=== PATIENT | male | born 1945 | race Caucasian/White ===

== ENCOUNTER 2017-06-17 09:29 | Outpatient (CLI) | payer MEDICARE ==
[~2017-06-17] VITALS: Ht 175.3 cm; Wt 97.1 kg
[2017-06-17] MEDS ORDERED: MISO200T4 PO (09:43)
[2017-06-17] MEDS ORDERED: METO-370 PO (09:43)
[2017-06-17] MEDS ORDERED: FAMO20TA3 PO (09:43)
[2017-06-17] MEDS ORDERED: ASPI-999 PO (09:43)
[2017-06-17] MEDS ORDERED: ATOR40TA70 PO (09:43)
[2017-06-17] MEDS ORDERED: ACET325T38 PO (09:43)
[2017-06-17] MEDS ORDERED: AMLO5TAB2 PO (09:43)
[2017-06-17 09:47] VITALS: BP 150/87
== END 2017-06-17 10:01 | disposition home or self-care (01) ==
LOC: PREOP 09:29
PROVIDERS: ATTEND Podiatrist
DX: Z01.818 Encounter for other preprocedural examination (principal); M86.172 Other acute osteomyelitis, left ankle and foot
CPT/HCPCS: 87081

== ENCOUNTER 2017-06-23 06:00 | Day surgery (SDC) | payer MEDICARE ==
[~2017-06-23] VITALS: Ht 175.3 cm; Wt 97.1 kg
[~2017-06-23 06:00] MED LIST: ACET325T38 PO; AMLO5TAB2 PO; ASPI-999 PO; ATOR40TA70 PO; FAMO20TA3 PO; METO-370 PO; MISO200T4 PO
--- OUTSIDE RECORDS SUMMARY | 2017-06-23 06:15 | XMS REPORT | Continuity of Care Document ---
Author Author [facility] Organization [facility] Address Unknown Phone Unavailable Allergies Active Description Code Type Severity Reaction Onset Reported/Identified Relationship to Patient Clinical Status Yes No Known Drug Allergies [id number] N/A N/A Yes No Known Drug Allergies [id number] Drug Allergy Unknown N/A 06/17/2017 Medications There is no data. Problems Date Dx Coded Attending Type Code Diagnosis Diagnosed By 06/17/2017 BENSON LÓPEZ DPM Ot M86.172 OTHER ACUTE OSTEOMYELITIS, LEFT ANKLE AN 06/17/2017 ALISSAHO BENSON BHARDWAJ Ot Z01.818 ENCOUNTER FOR OTHER PREPROCEDURAL EXAMIN 06/18/2017 ALISSAHO BENSON BHARDWAJ Ot M86.172 OTHER ACUTE OSTEOMYELITIS, LEFT ANKLE AN 06/18/2017 BLANCHO LASHAE, BENSON Mueller Ot Z01.818 ENCOUNTER FOR OTHER PREPROCEDURAL EXAMIN 06/18/2017 BLANCHO LASHAE, BENSON Mueller Ot M86.172 OTHER ACUTE OSTEOMYELITIS, LEFT ANKLE AN 06/18/2017 BLANCHO LASHAE, BENSON Mueller Ot Z01.818 ENCOUNTER FOR OTHER PREPROCEDURAL EXAMIN Procedures There is no data. Results Test Result Range Methicillin resistant Staphylococcus aureus (MRSA) screening culture - 09:45 Methicillin resistant Staphylococcus aureus (MRSA) screening culture NEG NRG Encounters ACCT No. Visit Date/Time Discharge Status Pt. Type Provider Facility Loc./Unit Complaint [id number] 11/28/2014 16:50:00 11/28/2014 23:59:59 CLS Outpatient Nelson Sawant [id number] 06/17/2017 09:29:00 06/17/2017 10:01:00 DIS Outpatient BENSON LÓPEZ DPM Via [facility] PREOP OSTEOMYELITIS [id number] 06/23/2017 06:00:00 ACT Outpatient BENSON LÓPEZ DPM Via [facility] SDC OSTEOMYELITIS [id number] 06/17/2017 08:04:47 Document Registration [id number] 06/10/2017 08:29:04 Document Registration [id number] 05/31/2017 09:04:40 Document Registration [id number] 05/25/2017 11:51:30 Document Registration [id number] 05/25/2017 10:19:55 Document Registration [id number] 05/24/2017 09:35:17 Document Registration [id number] 05/17/2017 10:01:15 Document Registration [id number] 05/03/2017 09:58:47 Document Registration [id number] 04/27/2017 11:31:08 Document Registration [id number] 04/26/2017 09:08:02 Document Registration [id number] 04/19/2017 09:38:32 Document Registration [id number] 04/12/2017 09:16:52 Document Registration [id number] 04/05/2017 10:22:10 Document Registration [id number] 03/29/2017 09:06:57 Document Registration [id number] 03/22/2017 09:44:15 Document Registration [id number] 03/15/2017 08:42:59 Document Registration [id number] 03/08/2017 09:36:30 Document Registration [id number] 03/03/2017 11:11:35 Document Registration [id number] 02/24/2017 09:14:50 Document Registration [id number] 02/15/2017 09:10:52 Document Registration [id number] 02/08/2017 08:30:33 Document Registration [id number] 01/28/2017 13:25:12 Document Registration
[2017-06-23 06:30] VITALS: BP 148/85
[2017-06-23] MEDS ORDERED: ONDANSETRON 4 MG/2 ML (SDV) Z0FRAN ONE ×2 (06:45→09:20)
[2017-06-23] MEDS ORDERED: LIDOCAINE PF 2% 5 ML (XYLOCAINE) VIAL ONE ×2 (06:45→09:20)
[2017-06-23] MEDS ORDERED: proPOfol 200 MG/20 ML (DIPRIVAN) VIAL IV ONE ×2 (06:45→09:20)
[2017-06-23] MEDS ORDERED: fentaNYL INJECTION 100 MCG/2 ML AMP ONE ×2 (06:46→09:20)
[2017-06-23] MEDS ORDERED: MIDAZOLAM 2 MG/2 ML (VERSED) VIAL ONE ×2 (06:46→09:20)
--- NOTE | 2017-06-23 09:06 | Consultation-Cardiology ---
HPI-Cardiology Cardiology Consultation Date of Consultation 06/23/17 Date of Admission Time Seen by Provider: 08:15 Indication: afib HPI Patient is a 71 y/o male with history of HTN, HLP, DM, obesity, osteomyelitis of left foot. Is scheduled for surgery later today with Dr. Gant. Preop EKG revealed atrial fibrillation, rate controlled. Denies any CP, dyspnea, dizziness , lightheadedness, or syncope. No other complaints at this time. Reports has seen Dr. Valle once in the remote past. Denies history of CAD or stent placement. This is Dr. Pennington, I have seen and evaluated Mr. Hodge, he is a 71 years old gentleman with history of hypertension, hyperlipidemia, obesity, has been having osteomyelitis for the past few weeks, scheduled for debridement surgery with Dr. Gonzalez, preoperatively he was noted to be in atrial fibrillation with controlled rate. He denied any chest pain, shortness of breath, palpitation, syncope or near syncopal episode. Admit to snoring at night, reported that he was seen by Dr. Valle in the remote past and he was cleared in the remote past did not require any follow-up. Not aware that he is diabetic but his blood sugar was noted to be elevated Home Medications & Allergies Allergies: Coded Allergies: No Known Drug Allergies (Unverified , 06/17/17) Home Medication List Reviewed: Yes WQL-Wjayfq-Rdfnno Hx Patient Social History Marital Status: Alcohol Use: Past History Recreational Drug Use: No Smoking Status: Former Smoker (quit over 40 years ago) Recent Hopitalizations: No Past Medical History HTN, HLP Family Medical History Significant Family History: No Pertinent Family Hx Constitutional: No dizziness, No fever, No malaise, No weakness EENTM: No blurred vision, No double vision Respiratory: No cough; dyspnea on exertion; No orthopnea Cardiovascular: No chest pain, No edema, No palpitations, No vascular heart diseas Gastrointestinal: No abdominal pain, No constipation, No diarrhea Genitourinary: No dysuria, No frequency Musculoskeletal: No back pain, No neck pain Skin: No lesions, No rash Psychiatric/Neurological: Denies Anxiety, Denies Depressed ECG Impression ECG Initial ECG Rhythm: A Fib/Flutter Initial ECG Impression: Atrial Fibrillation Physical Exam Vital Signs Capillary Refill : General Appearance: No Apparent Distress, WD/WN HEENT: PERRL/EOMI, Normal ENT Inspection Neck: Non Tender, Supple Respiratory: Chest Non Tender, Lungs Clear Cardiovascular: No Edema, No Gallop, No JVD, No Murmur, Irregularly Irregular Gastrointestinal: Non Tender, Soft Rectal: Deferred Back: No CVA Tenderness Extremity: Non Tender, No Calf Tenderness, No Pedal Edema Neurologic/Psychiatric: Alert, Oriented x3, card hand II-XII Norm as Tested Skin: Normal Color, Warm/Dry Lymphatic: No Adenopathy A/P-Cardiology Admission Diagnosis atrial fibrillation left foot osteomyelitis HTN HLP Assessment/Plan Atrial fibrillation, unknown duration. EKG reveals afib, rate controlled. Has been maintained on beta jackeline as outpatient for HTN. I will further evaluate with 2D Echo, TSH. Has multiple risk factors for underlying CAD and VIOLET. Recommend stress test and sleep study as an outpatient. [id number] score of 3, yearly risk of stroke without OAC is 3.2%. Planning to start Eliquis 5mg BID postoperatively. Left foot osteomyelitis, planning for surgery later today with Dr. Gant HTN- continue to monitor BP/HR. Resume BP medications post operatively HLP- maintained on statin as outpatient, continue to monitor. Hyperglycemia, questionable DM by history- continue to monitor. Obesity- discussed diet and exercise for weight loss. Multiple risk factors for underlying VIOLET- recommend sleep study as outpatient. Preoperative cardiac evaluation, patient is considered at intermediate risk for perioperative cardiac vascular complication, decision regarding the surgery, risks versus benefit is deferred to the surgeon, perioperative beta blockers are recommended. Thank you for allowing us to participate in the management of Mr. Hodge. This is Rashmi Menchaca PA-C as a scribe for Dr. Pennington. This is Dr. Pennington, I have seen and evaluated Mr. Hodge with Rashmi, interviewed the patient and examined him and discussed the management plan with Rashmi, agree with the current scribe, on examination lungs are clear to auscultation bilaterally, heart is irregular with normal S1 and S2. Had swelling on his leg. He was noted to be in atrial flutter ablation with controlled rate, taking beta blockers as an outpatient. He is at an increased risk of stroke which require oral anticoagulation postoperatively once deemed reasonable by the surgeon. I will evaluate echocardiogram, he is at increased risk of sleep apnea and requires sleep study, he is hyperglycemic, probably diabetic require diabetic management. I made few modification to the note and used Italic Font RASHMI MENDOZA Jun 23, 2017 09:06 ASHLIE PENNINGTON MD Jun 23, 2017 09:22
[2017-06-23] MEDS ORDERED: ceFAZolin 2 GM IV Premixed 50 ML ONE (09:09)
[2017-06-23] MEDS ORDERED: SEVOFLURANE (ULTANE) 15 ML INHAL SOLN ONE ×5 (09:24→10:49)
[2017-06-23] MEDS ORDERED: LACTATED RINGERS 1,000 ML IV PRN (09:39)
[2017-06-23] MEDS ORDERED: ceFAZolin 2 GM IV Premixed 50 ML IV ONE (09:45)
[2017-06-23] MEDS ORDERED: morphine INJ 10 MG/ML 1ML (SYR OR VIAL) IVP PRN (09:45)
[2017-06-23] MEDS ORDERED: VANCOMYCIN 1000 MG/VIAL ONE (10:13)
[2017-06-23] MEDS ORDERED: GENTAMICIN 40 MG/ML 2 ML INJ SDV ONE (10:13)
--- NOTE | 2017-06-23 11:06 | Progress Note-Pre Operative ---
Pre-Operative Progress Note H&P Reviewed The H&P was reviewed, patient examined and no changes noted. Date Seen by Provider: Jun 23, 2017 Time Seen by Provider: 10:00 Date H&P Reviewed: Jun 23, 2017 Time H&P Reviewed: 10:00 Pre-Operative Diagnosis: Osteomyelitis Left 5th Metatarsal BENSON LÓPEZ DPM Jun 23, 2017 11:06
[2017-06-23] MEDS ORDERED: ACHD5005 PO (11:09)
--- NOTE | 2017-06-23 11:10 | Discharge Inst-Surgical ---
Discharge Inst-Surgical Consults/Follow Up Patient Instructions: Keep Dressing Clean Dry and Intact to the Left foot. Be minimal Weight Bearing to the left foot with Surgical shoe. Follow up with Dr López in 3 weeks. Call for appointment. [phone] BENSON LÓPEZ DPM Jun 23, 2017 11:10
--- NOTE | 2017-06-23 11:28 | Discharge Inst-Surgical ---
Discharge Inst-Surgical Consults/Follow Up Patient Instructions: Keep Dressing Clean Dry and Intact for 3 days. Then At that time begin changing dressing daily by applying a dry sterile dressing and an acewrap. Wear Surgical shoe at all times of weight bearing. Follow up with Dr López next 07/01/17. Call for appointment. [phone] BENSON LÓPEZ DPM Jun 23, 2017 11:28
[2017-06-23 11:50] VITALS: BP 135/88
[2017-06-23 12:20] VITALS: BP 140/85
--- NOTE | 2017-06-23 12:46 | Anesthesia-General Post-Op ---
General Patient Condition Mental Status/LOC: Same as Preop Cardiovascular: Satisfactory Nausea/Vomiting: Absent Respiratory: Satisfactory Pain: Controlled Complications: Absent Post Op Complications Complications None Follow Up Care/Instructions Patient Instructions None needed. Anesthesia/Patient Condition Patient Condition Patient is doing well, no complaints, stable vital signs, no apparent adverse anesthesia problems. No complications reported per nursing. BLANCO ALLEN CRNA Jun 23, 2017 12:46
[2017-06-23 12:50] VITALS: BP 128/77
[2017-06-23 13:30] VITALS: BP 128/77
--- NOTE | 2017-07-14 17:15 | OPERATIVE REPORT ---
DATE OF SERVICE: 06/23/2017 SURGEON: Jose López DPM. GLOVE BOARDER: None. PREOPERATIVE DIAGNOSIS: Osteomyelitis of the left fifth metatarsal. POSTOPERATIVE DIAGNOSIS: Osteomyelitis of the left fifth metatarsal. PROCEDURE PERFORMED: 1. Resection of the distal 1/2 of the left fifth metatarsal. 2. Placement of antibiotic bone void spacer. ANESTHESIA: General anesthesia. HEMOSTASIS: Locally controlled. ESTIMATED BLOOD LOSS: 25 mL. MATERIALS USED: Antibiotic bone void spacer, 2-0, 3-0 nylon. INTRAOPERATIVE INJECTABLES: None. COMPLICATIONS: None. INDICATION FOR THE PROCEDURE: The patient is a 71-year-old male with a history of complicated ulcer to his left foot with a history of osteomyelitis of the fifth metatarsal. At this time, he is also on conservative measures requiring surgical intervention. He signed consent prior to being taken back to the OR. DESCRIPTION OF PROCEDURE: Under mild sedation, the patient was brought in the OR and placed on the operating table in supine position. Following administration of general anesthesia, the left lower extremity was scrubbed, prepped and draped in aseptic manner and proper timing was performed. Left lower extremity was identified as surgical site. Next, approximately 5 cm incision was made to the dorsal aspect of the fifth metatarsal. The incision was deepened down to the level of bone with care being taken to avoid damage to neurovascular structures. All bleeders were cauterized and ligated as necessary. It was noted that there was a mild amount of purulence around the bone. The bone was very soft and discolored, associated with osteomyelitis and necrosis of the bone of the distal half of the fifth metatarsal. A sagittal saw was used to resect the distal one half of the fifth metatarsal and passed from the surgical field. The wound was then flushed with copious amounts of sterile saline under pulse lavage. Any necrotic tissue was debrided down to the level of good healthy bleeding tissue. Next, antibiotic bone void spacer was made with bone cement and antibiotics on the back table. It was then transferred into the area of the surgical wound. The skin was then reapproximated and closed with 2-0 and 3-0 nylon. The foot was then dressed with a dry sterile dressing consisting of 4 x 4's, Webril and Yannick wrap. The patient tolerated the procedure and anesthesia well. He was transferred from OR to recovery with vital signs stable and vascular status intact to the left lower extremity. Job ID: [id number] DocumentID: [id number] Dictated Date: 07/14/2017 08:34:43 Corridor Redevelopment Manager Date: 07/14/2017 17:14:58 Dictated By: JOSE LÓPEZ DPM
== END 2017-06-23 13:30 | disposition home or self-care (01) ==
LOC: SDC 06:00
PROVIDERS: ATTEND Podiatrist
DX: M86.172 Other acute osteomyelitis, left ankle and foot (principal); L97.529 Non-pressure chronic ulcer of other part of left foot with unspecified severity; I10 Essential (primary) hypertension; E78.5 Hyperlipidemia, unspecified; K21.9 Gastro-esophageal reflux disease without esophagitis; Z79.899 Other long term (current) drug therapy
CPT/HCPCS: 36415; 84443; 93005; 93306

== ENCOUNTER 2021-05-27 14:23 | Observation (INO) | payer MEDICARE ==
[~2021-05-27] VITALS: Ht 175.3 cm; Wt 97.1 kg
[~2021-05-27 14:23] MED LIST changes: -CEFT2PIG IV; -FINA5TAB6 PO; -MTP100TCR PO
--- NOTE | 2021-05-27 14:43 | ED Integumentary General ---
General Chief Complaint: Skin/Wound Problems Stated Complaint: SORE ON RIGHT FOOT Source: patient Exam Limitations: no limitations History of Present Illness Date Seen by Provider: May 27, 2021 Time Seen by Provider: 14:38 Initial Comments 75y.o male with hx of HTN, HLD, A-fib (not anticoagulated) presents to ER by wheelchair from outpatient wound care "to be admitted". He states he has a wound on the right foot for "a while" but just recently "opened up". No known cause. No fevers or chills and it is not painful. he is able to ambulate without pain. 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 Timing/Duration: constant Severity: moderate Possible Cause: no cause identified Associated Symptoms: denies symptoms Allergies and Home Medications Allergies Coded Allergies: No Known Drug Allergies (Unverified , 06/17/17) Patient Home Medication List Home Medication List Reviewed: Yes Acetaminophen (Tylenol) 325 Mg Tablet, 650 MG PO PRN, (Reported) Entered as Reported by: HARVEY WHITTAKER on 06/17/17 09 Amlodipine Besylate (Amlodipine Besylate) 5 Mg Tablet, 5 MG PO DAILY, (Reported) Entered as Reported by: HARVEY WHITTAKER on 06/17/17 09 Aspirin (Aspirin) 81 Mg Tab.chew, 81 MG PO DAILY, (Reported) Entered as Reported by: HARVEY WHITTAKER on 06/17/17 09 Atorvastatin Calcium (Atorvastatin Calcium) 40 Mg Tablet, 40 MG PO DAILY, (Reported) Entered as Reported by: HARVEY WHITTAKER on 06/17/17 09 Famotidine (Acid Applications Support Specialist (FAMOTIDINE)) 20 Mg Tablet, 20 MG PO BID, (Reported) Entered as Reported by: HARVEY WHITTAKER on 06/17/17 09 Hydrocodone Bit/Acetaminophen (Lortab 5 Mg Tablet) 1 Tab Tab, 1-2 TAB PO Q4H PRN for PAIN-MODERATE Prescribed by: BENSON LÓPEZ on 06/23/17 1109 Metoprolol Succinate (Metoprolol Succinate) 50 Mg Tab.er.24h, 50 MG PO DAILY, (Reported) Entered as Reported by: HARVEY WHITTAKER on 06/17/17 09 Misoprostol (Misoprostol) 200 Mcg Tablet, 200 MCG PO BID, (Reported) Entered as Reported by: HARVEY WHITTAKER on 06/17/17 0943 Review of Systems Review of Systems Constitutional: see HPI; No chills, No fever EENTM: see HPI Respiratory: no symptoms reported Cardiovascular: no symptoms reported Genitourinary: no symptoms reported Musculoskeletal: see HPI Skin: no symptoms reported Psychiatric/Neurological: No Symptoms Reported Endocrine: No Symptoms Reported Hematologic/Lymphatic: No Symptoms Reported Past Ituvqgc-Vxapvw-Qgiepu Hx Patient Social History Tobacco Use?: No Smoking Status: Former Smoker Substance use?: No Alcohol Use?: No Pt feels they are or have been: No Immunizations Up To Date First/Initial COVID19 Vaccinat: 2020 Second COVID19 Vaccination Yuval: 2020 COVID19 Vaccine [employer] Philosophy Professor: MODERNNick Seasonal Allergies Seasonal Allergies: No Past Medical History Surgery/Hospitalization HX: HTN, HLD, AFIB High Cholesterol, Hypertension Reproductive Disorders: No Sexually Transmitted Disease: No HIV/AIDS: No Gastroesophageal Reflux, Ulcer Loss of Vision: Bilateral Hearing Impairment: Hard of Hearing Adverse Reaction/Blood Tranf: No (HAS HAD BLOOD WITH NO REACTION) Family Medical History No Pertinent Family Hx Physical Exam Vital Signs Vital Signs - First Documented 05/27/21 14:30 Temp 37.0 Pulse 90 Resp 17 B/P (MAP) 150/77 (101) Capillary Refill : General Appearance: WD/WN, no apparent distress HEENT: PERRL/EOMI, normal ENT inspection Neck: non-tender, full range of motion, supple Cardiovascular: regular rate, rhythm, irregularly irregular Respiratory: no respiratory distress, no accessory muscle use Extremities: normal range of motion, other (previous left transmetatarsal foot amputation well healed with no wounds. ) Neurologic/Psychiatric: alert, normal mood/affect, oriented x 3 Skin: normal color, warm/dry Skin Problem Location: lower extremities Skin Problem Character: other (plantar surface of right foot has a large wound with some granulation tissue and some necrotic tissue. Foul odor. strong blood flow in DP artery using doppler, foot is red and edematous moreso than the left. Chronic brownish discloroation and thickening of skin bilat lower extremities. ) Progress/Results/Core Measures Results/Orders Lab Results Laboratory Tests Test 05/27/21 14:50 Range/Units White Blood Count 13.2 H 4.3-11.0 10^3/uL Red Blood Count 4.36 4.30-5.52 10^6/uL Hemoglobin 13.1 L 13.3-17.7 g/dL Hematocrit 40 40-54 % Mean Corpuscular Volume 91 80-99 fL Mean Corpuscular Hemoglobin 30 25-34 pg Mean Corpuscular Hemoglobin Concent 33 32-36 g/dL Red Cell Distribution Width 13.0 10.0-14.5 % Platelet Count 300 130-400 10^3/uL Mean Platelet Volume 9.5 9.0-12.2 fL Immature Granulocyte % (Auto) 1 % Neutrophils (%) (Auto) 81 H 42-75 % Lymphocytes (%) (Auto) 9 L 12-44 % Monocytes (%) (Auto) 9 0-12 % Eosinophils (%) (Auto) 0 0-10 % Basophils (%) (Auto) 1 0-10 % Neutrophils # (Auto) 10.7 H 1.8-7.8 10^3/uL Lymphocytes # (Auto) 1.1 1.0-4.0 10^3/uL Monocytes # (Auto) 1.1 H 0.0-1.0 10^3/uL Eosinophils # (Auto) 0.0 0.0-0.3 10^3/uL Basophils # (Auto) 0.1 0.0-0.1 10^3/uL Immature Granulocyte # (Auto) 0.1 0.0-0.1 10^3/uL Erythrocyte Sedimentation Rate 108 H 0-30 MM/HR Prothrombin Time 16.8 H 12.2-14.7 SEC INR Comment 1.3 0.8-1.4 Sodium Level 136 135-145 MMOL/L Potassium Level 3.7 3.6-5.0 MMOL/L Chloride Level 100 98-107 MMOL/L Carbon Dioxide Level 22 21-32 MMOL/L Anion Gap 14 5-14 MMOL/L Blood Urea Nitrogen 17 7-18 MG/DL Creatinine 1.21 0.60-1.30 MG/DL Estimat Glomerular Filtration Rate 62 BUN/Creatinine Ratio 14 Glucose Level 110 H 70-105 MG/DL Calcium Level 9.1 8.5-10.1 MG/DL Corrected Calcium 9.6 8.5-10.1 MG/DL Total Bilirubin 0.9 0.1-1.0 MG/DL Aspartate Amino Transf (AST/SGOT) 87 H 5-34 U/L Alanine Aminotransferase (ALT/SGPT) 90 H 0-55 U/L Alkaline Phosphatase 68 40-136 U/L Total Protein 7.8 6.4-8.2 GM/DL Albumin 3.4 3.2-4.5 GM/DL My Orders Orders - HOWARD TERESA APRN Erythrocyte Sedimentation Rate (05/27/21 14:36) Cbc With Automated Diff (05/27/21 14:36) Comprehensive Metabolic Panel (05/27/21 14:36) Protime With Inr (05/27/21 14:36) Ed Iv/Invasive Line Start (05/27/21 14:36) Foot, Right, 3 View (05/27/21 14:36) Chest 1 View, Ap/Pa Only (05/27/21 14:36) Ekg Tracing (05/27/21 14:36) Hemoglobin A1c (05/27/21 14:36) Blood Culture (05/27/21 14:36) Doxycycline Injection (Vibramycin Inject (05/27/21 15:45) Medications Given in ED Current Medications Medications Dose Ordered Sig/Celnia Route Start Time Stop Time Status Last Admin Dose Admin Doxycycline Hyclate 100 mg/ Sodium Chloride 100 ml @ 100 mls/hr ONCE ONCE IV 05/27/21 15:45 05/27/21 16:44 DC 05/27/21 16:14 100 MLS/HR Vital Signs/I&O 05/27/21 14:30 Temp 37.0 Pulse 90 Resp 17 B/P (MAP) 150/77 (101) Departure Communication (Admissions) 1700-will admit on vanc+zosyn to dr fernández and consult dr neville. MRI right foot in am. NAME: STEFANIE BELTRAN [facility] REC#: [id number] PT STATUS: REG ER : 1945 PHYSICIAN: HOWARD TERESA APRN ADMIT DATE: 05/27/21/ER Draft Date of Exam:05/27/21 FOOT, RIGHT, 3 VIEW INDICATION: Right foot wound. TIME OF EXAM: 2:59 PM. COMPARISON: No prior studies are available for comparison. FINDINGS: There is a bunion deformity noted. There are degenerative changes at the 1st MTP joint. There appear to be hammertoe deformities. There is an old fracture of the distal 5th metatarsal. No definite bony destructive changes are seen. There appears to be some soft tissue swelling about the foot but no soft tissue gas is identified. The midfoot and hindfoot are unremarkable apart from a large plantar calcaneal spur. IMPRESSION: Chronic changes and soft tissue swelling. No definite bony destructive changes are seen. Dictated on workstation # [id number] Dict: 05/27/21 1515 Trans: 05/27/21 1518 [id number] Interpreted by: GENIE PAYTON MD Electronically signed by: Impression Primary Impression: Open wound of plantar aspect of foot Additional Impression: Cellulitis Disposition: ADMITTED INPATIENT Condition: Stable Departure-Patient Inst. Referrals: SALINA NEVILLE BENJAMEN H MD (PCP) Primary Care Physician Patient Instructions: Wound Care HOWARD TERESA APRN May 27, 2021 14:43
[2021-05-27 15:00] LABS: BASOPHILS # (AUTO) 0.1 10^3/uL (0.0-0.1); BASOPHILS % (AUTO) 1 % (0-10); EOSINOPHILS % (AUTO) 0 % (0-10); HEMATOCRIT 40 % (40-54); HEMOGLOBIN 13.1 g/dL (13.3-17.7); LYMPHOCYTES # (AUTO) 1.1 10^3/uL (1.0-4.0); LYMPHOCYTES % (AUTO) 9 % (12-44); MEAN CORPUSCULAR HEMOGLOBIN 30 pg (25-34); MEAN CORPUSCULAR HGB CONC 33 g/dL (32-36); MEAN CORPUSCULAR VOLUME 91 fL (80-99); MEAN PLATELET VOLUME 9.5 fL (9.0-12.2); MONOCYTES # (AUTO) 1.1 10^3/uL (0.0-1.0); MONOCYTES % (AUTO) 9 % (0-12); NEUTROPHILS # (AUTO) 10.7 10^3/uL (1.8-7.8); NEUTROPHILS % (AUTO) 81 % (42-75); PLATELET COUNT 300 10^3/uL (130-400); WHITE BLOOD COUNT 13.2 10^3/uL (4.3-11.0)
--- NOTE | 2021-05-27 15:15 | Diagnostic Imaging Report ---
INDICATION: Foot wound. TIME OF EXAM: 02:57 p.m. COMPARISON: No prior studies are available for comparison. FINDINGS: The heart appears enlarged. Lungs are clear. No infiltrates are seen. There is no effusion or pneumothorax. IMPRESSION: No acute cardiopulmonary process is detected. Dictated by: Dictated on workstation # [id number]
[2021-05-27 15:17] LABS: INR 1.3 (0.8-1.4); PROTHROMBIN TIME PATIENT 16.8 SEC (12.2-14.7)
--- NOTE | 2021-05-27 15:19 | Diagnostic Imaging Report ---
INDICATION: Right foot wound. TIME OF EXAM: 2:59 PM. COMPARISON: No prior studies are available for comparison. FINDINGS: There is a bunion deformity noted. There are degenerative changes at the 1st MTP joint. There appear to be hammertoe deformities. There is an old fracture of the distal 5th metatarsal. No definite bony destructive changes are seen. There appears to be some soft tissue swelling about the foot but no soft tissue gas is identified. The midfoot and hindfoot are unremarkable apart from a large plantar calcaneal spur. IMPRESSION: Chronic changes and soft tissue swelling. No definite bony destructive changes are seen. Dictated by: Dictated on workstation # [id number]
[2021-05-27 15:21] LABS: ERYTHROCYTE SEDIMENTATION RATE 108 MM/HR (0-30)
[2021-05-27 15:29] LABS: ALBUMIN 3.4 GM/DL (3.2-4.5); BILIRUBIN,TOTAL 0.9 MG/DL (0.1-1.0); CALCIUM 9.1 MG/DL (8.5-10.1); CREATININE SERUM 1.21 MG/DL (0.60-1.30); POTASSIUM 3.7 MMOL/L (3.6-5.0); TOTAL PROTEIN 7.8 GM/DL (6.4-8.2)
[2021-05-27] MEDS ORDERED: DOXYCYCLINE INJECTION 100 MG in NS (IVPB) 100 ML IV ONE (15:45)
--- NOTE | 2021-05-27 16:14 | Consultation - Surgery ---
ENRIQUEHARSHA SALAZAR 05/27/21 1614: History of Present Illness History of Present Illness Patient Consulted On(dominick/time) 05/27/21 16:12 Date Seen by Provider: May 27, 2021 Time Seen by Provider: 03:50 Reason for Visit: R foot wound History of Present Illness Consult requested by ER for R foot wound. 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 He also reports his "lungs are shot from inhaling dust," but does not know if it is COPD. He denies DM, but reports that he does not have good sensation in his feet and that sometimes they tingle. He first noticed the wound two years ago, as a small hole by his R big toe. He kept an eye on it. 2 years later (about 3 months ago) he "knocked the top" off the sore in the shower. He has been "doctoring it" for 3 months. This past Wednesday, he removed his sock and skin sloughed off with it from the site, resulting in the wound that is now present. The large wound extends beneath his first and second toes. It is erythematous and contains both tissue and granulomatous tissue. It does not appear necrotic. It has serosanginous drainage. He also has R bolanos cellulitis, which has been there almost as long as the foot wound (2 years). His R ankle is swollen medially. His left bolanos has dark discoloration, but no erythema. Pt denies CP, palpitations, fever and chills at this time. States he has chronic cough and SOB. Allergies and Home Medications Allergies Coded Allergies: No Known Drug Allergies (Unverified , 06/17/17) Patient Home Medication List Acetaminophen (Tylenol) 325 Mg Tablet, 650 MG PO PRN, (Reported) Entered as Reported by: HARVEY WHITTAKER on 06/17/17 09 Amlodipine Besylate (Amlodipine Besylate) 5 Mg Tablet, 5 MG PO DAILY, (Reported) Entered as Reported by: HARVEY WHITTAKER on 06/17/17 09 Aspirin (Aspirin) 81 Mg Tab.chew, 81 MG PO DAILY, (Reported) Entered as Reported by: HARVEY WHITTAKER on 06/17/17 0943 Atorvastatin Calcium (Atorvastatin Calcium) 40 Mg Tablet, 40 MG PO DAILY, (Reported) Entered as Reported by: HARVEY WHITTAKER on 06/17/17 0943 Famotidine (Acid Social Staff Worker (FAMOTIDINE)) 20 Mg Tablet, 20 MG PO BID, (Reported) Entered as Reported by: HARVEY WHITTAKER on 06/17/17 0943 Hydrocodone Bit/Acetaminophen (Lortab 5 Mg Tablet) 1 Tab Tab, 1-2 TAB PO Q4H PRN for PAIN-MODERATE Prescribed by: BENSON LÓPEZ on 06/23/17 1109 Metoprolol Succinate (Metoprolol Succinate) 50 Mg Tab.er.24h, 50 MG PO DAILY, (Reported) Entered as Reported by: HARVEY WHITTAKER on 06/17/17 0943 Misoprostol (Misoprostol) 200 Mcg Tablet, 200 MCG PO BID, (Reported) Entered as Reported by: HARVEY WHITTAKER on 06/17/17 0943 Past Wnpzljo-Hdsakb-Fsnbgp Hx Patient Social History Smoking Status: Former Smoker Former Smoker, Quit: Jun 17, 1972 Type Used: Cigarettes Recent Hopitalizations: No Alcohol Use?: No Have you traveled recently?: No Seasonal Allergies Seasonal Allergies: No Surgeries History of Surgeries: Yes Surgeries: Eye Surgery (cataracts), Orthopedic (left 5th metatarsal amputation) Respiratory History of Respiratory Disorde: Yes (unsure of his dx, says his lungs are "shot from dust") Cardiovascular History of Cardiac Disorders: Yes Cardiac Disorders: Atrial Fibrillation, High Cholesterol, Hypertension Neurological History of Neurological Disord: Yes Neurological Disorders: Neuropathy (bilateral feet) Reproductive System Hx Reproductive Disorders: No Sexually Transmitted Disease: No HIV/AIDS: No Genitourinary History of Genitourinary Disor: Yes Genitourinary Disorders: Benign Prostatic Hyperpl Gastrointestinal History of Gastrointestinal Di: Yes Gastrointestinal Disorders: Gastroesophageal Reflux, Ulcer Musculoskeletal History of Musculoskeletal Dis: Yes Musculoskeletal Disorders: 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) Endocrine History of Endocrine Disorders: No HEENT History of HEENT Disorders: Yes HEENT Disorders: Cataract Loss of Vision: Bilateral Hearing Impairment: Hard of Hearing Cancer History of Cancer: No Psychosocial History of Psychiatric Problem: No Integumentary History of Skin or Integumenta: Yes Skin/Integumentary Disorders: Recent Skin Changes Blood Transfusions Adverse Reaction to a Blood Tr: No (HAS HAD BLOOD WITH NO REACTION) Family Medical History Significant Family History: No Pertinent Family Hx, Cancer (breast cancer-mom), Diabetes (mom), Stroke (mom) Review of Systems-General Constitutional: No chills, No fever EENTM: No hearing loss, No vision loss Respiratory: cough, short of breath Cardiovascular: No chest pain, No palpitations Gastrointestinal: No abdominal pain, No diarrhea, No nausea, No vomiting; other (no hematochezia) Genitourinary: No dysuria; frequency (with BPH meds) Musculoskeletal: No back pain, No muscle cramps, No neck pain Skin: lesions (ulcerative wound bottom of R foot; serosanguinous drainage), rash (cellulitis R bolanos) Psychiatric/Neurological: Denies Anxiety, Denies Depressed Physical Exam-General Problems Physical Exam Vital Signs Vital Signs - First Documented 05/27/21 14:30 Temp 37.0 Pulse 90 Resp 17 B/P (MAP) 150/77 (101) Capillary Refill : General Appearance: no apparent distress, obese Eyes: Bilateral Eye PERRL, Bilateral Eye EOMI HEENT: PERRL/EOMI; No photophobia Neck: supple, normal inspection Respiratory: no respiratory distress, accessory muscle use, wheezing Cardiovascular: no murmur, irregularly irregular Peripheral Pulses: 2+ Radial Pulses (R), 2+ Radial Pulses (L) Gastrointestinal: no pulsatile mass, distended; No tenderness Extremities: inflammation (cellulitis R bolanos), swelling (R ankle), other (amputation left metatarsals) Neurologic/Psychiatric: alert, normal mood/affect, oriented x 3 Skin: other (lesion bottom R foot; serosanguinous drainage), rash (cellulitis R bolanos) Data Review Labs Laboratory Tests 05/27/21 14:50: White Blood Count 13.2H, Red Blood Count 4.36, Hemoglobin 13.1L, Hematocrit 40, Mean Corpuscular Volume 91, Mean Corpuscular Hemoglobin 30, Mean Corpuscular Hemoglobin Concent 33, Red Cell Distribution Width 13.0, Platelet Count 300, Mean Platelet Volume 9.5, Immature Granulocyte % (Auto) 1, Neutrophils (%) (Auto) 81H, Lymphocytes (%) (Auto) 9L, Monocytes (%) (Auto) 9, Eosinophils (%) (Auto) 0, Basophils (%) (Auto) 1, Neutrophils # (Auto) 10.7H, Lymphocytes # (Auto) 1.1, Monocytes # (Auto) 1.1H, Eosinophils # (Auto) 0.0, Basophils # (Auto) 0.1, Immature Granulocyte # (Auto) 0.1, Erythrocyte Sedimentation Rate 108H, Prothrombin Time 16.8H, INR Comment 1.3, Sodium Level 136, Potassium Level 3.7, Chloride Level 100, Carbon Dioxide Level 22, Anion Gap 14, Blood Urea Nitrogen 17, Creatinine 1.21, Estimat Glomerular Filtration Rate 62, BUN/C reatinine Ratio 14, Glucose Level 110H, Calcium Level 9.1, Corrected Calcium 9.6, Total Bilirubin 0.9, Aspartate Amino Transf (AST/SGOT) 87H, Alanine Aminotransferase (ALT/SGPT) 90H, Alkaline Phosphatase 68, Total Protein 7.8, Albumin 3.4 Radiology NDICATION: Right foot wound. TIME OF EXAM: 2:59 PM. COMPARISON: No prior studies are available for comparison. FINDINGS: There is a bunion deformity noted. There are degenerative changes at the 1st MTP joint. There appear to be hammertoe deformities. There is an old fracture of the distal 5th metatarsal. No definite bony destructive changes are seen. There appears to be some soft tissue swelling about the foot but no soft tissue gas is identified. The midfoot and hindfoot are unremarkable apart from a large plantar calcaneal spur. IMPRESSION: Chronic changes and soft tissue swelling. No definite bony destructive changes are seen. CHEST 1 VIEW, AP/PA ONLY INDICATION: Foot wound. TIME OF EXAM: 02:57 p.m. COMPARISON: No prior studies are available for comparison. FINDINGS: The heart appears enlarged. Lungs are clear. No infiltrates are seen. There is no effusion or pneumothorax. IMPRESSION: No acute cardiopulmonary process is detected. Assessment/Plan Assessment/Plan Assessment/Plan Ulceration on bottom of R foot R bolanos cellulitis HTN Hx osteomyelitis/left metatarsals amputated Afib documented BPH HLD Lung disease- check pulse ox Glucose- 110 WBC- 13.2 Obtain MRI to rule out osteomyelitis [facility] Continue Abx Monitor labs and vitals SALINA NEVILLE DO 05/27/21 1710: History of Present Illness History of Present Illness Time Seen by Provider: 16:32 History of Present Illness Surgery asked to consult regarding right foot, plantar aspect ulceration/wound. When I spoke to pt he stated that his leg has been red for about a month, poss ibly getting worse. He was sent over today by the wound care clinic to be admitted for his cellulitis. Pt states his left leg looked this before he got "all my toes chopped off". He states it really isn't painful. When I asked him about imaging, he said they took six pictures. Allergies and Home Medications Allergies Coded Allergies: No Known Drug Allergies (Unverified , 06/17/17) Patient Home Medication List Home Medication List Reviewed: Yes Acetaminophen (Tylenol) 325 Mg Tablet, 650 MG PO PRN, (Reported) Entered as Reported by: HARVEY WHITTAKER on 06/17/17 09 Amlodipine Besylate (Amlodipine Besylate) 5 Mg Tablet, 5 MG PO DAILY, (Reported) Entered as Reported by: HARVEY WHITTAKER on 06/17/17 09 Aspirin (Aspirin) 81 Mg Tab.chew, 81 MG PO DAILY, (Reported) Entered as Reported by: HARVEY WHITTAKER on 06/17/17 0943 Atorvastatin Calcium (Atorvastatin Calcium) 40 Mg Tablet, 40 MG PO DAILY, (Reported) Entered as Reported by: HARVEY WHITTAKER on 06/17/17 0943 Famotidine (Acid Social Staff Worker (FAMOTIDINE)) 20 Mg Tablet, 20 MG PO BID, (Reported) Entered as Reported by: HARVEY WHITTAKER on 06/17/17 0943 Hydrocodone Bit/Acetaminophen (Lortab 5 Mg Tablet) 1 Tab Tab, 1-2 TAB PO Q4H PRN for PAIN-MODERATE Prescribed by: BENSON LÓPEZ on 06/23/17 1109 Metoprolol Succinate (Metoprolol Succinate) 50 Mg Tab.er.24h, 50 MG PO DAILY, (Reported) Entered as Reported by: HARVEY WHITTAKER on 06/17/17 0943 Misoprostol (Misoprostol) 200 Mcg Tablet, 200 MCG PO BID, (Reported) Entered as Reported by: HARVEY WHITTAKER on 06/17/17 0943 Past Kseiead-Pmracb-Idemsg Hx Patient Social History Smoking Status: Former Smoker Surgeries History of Surgeries: Yes Surgeries: Eye Surgery (cataracts), Orthopedic (toe amputation) Respiratory History of Respiratory Disorde: Yes (unsure of his dx, says his lungs are "shot from dust") Cardiovascular History of Cardiac Disorders: Yes Cardiac Disorders: Atrial Fibrillation, High Cholesterol, Hypertension Neurological History of Neurological Disord: Yes Neurological Disorders: Neuropathy (bilateral feet) Genitourinary History of Genitourinary Disor: Yes Genitourinary Disorders: Benign Prostatic Hyperpl Gastrointestinal History of Gastrointestinal Di: Yes Musculoskeletal History of Musculoskeletal Dis: Yes Musculoskeletal Disorders: 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), Arthritis Endocrine History of Endocrine Disorders: No HEENT History of HEENT Disorders: Yes HEENT Disorders: Cataract Cancer History of Cancer: No Psychosocial History of Psychiatric Problem: No Integumentary History of Skin or Integumenta: Yes Skin/Integumentary Disorders: Recent Skin Changes Family Medical History Significant Family History: Cancer (breast cancer-mom), Diabetes (mom), Stroke (mom) Review of Systems-General Constitutional: No chills, No fever EENTM: No hearing loss, No vision loss Respiratory: cough, short of breath Cardiovascular: No chest pain, No palpitations Gastrointestinal: No abdominal pain, No diarrhea, No nausea, No vomiting; other (no hematochezia) Genitourinary: No dysuria; frequency (with BPH meds) Musculoskeletal: No back pain, No muscle cramps, No neck pain Skin: lesions (ulcerative wound bottom of R foot; serosanguinous drainage), rash (cellulitis R bolanos) Psychiatric/Neurological: Denies Anxiety, Denies Depressed Physical Exam-General Problems Physical Exam General Appearance: no apparent distress, obese Eyes: Bilateral Eye PERRL, Bilateral Eye EOMI HEENT: No scleral icterus (R), No scleral icterus (L), No photophobia Neck: supple, normal inspection Respiratory: accessory muscle use, wheezing Cardiovascular: no murmur, irregularly irregular Peripheral Pulses: 2+ Radial Pulses (R), 2+ Radial Pulses (L) Gastrointestinal: no pulsatile mass, distended; No tenderness Extremities: inflammation (cellulitis R bolanos), swelling (R ankle), other (amputation left metatarsals) Skin: other (ulceration on bottom R foot with some dry necrotic tissue; serosanguinous drainage), rash (cellulitis R bolanos) Lymphatic: no adenopathy (neck, axilla or groin) Assessment/Plan Assessment/Plan Assessment/Plan Ulceration on bottom of R foot R bolanos cellulitis HTN Hx osteomyelitis/left metatarsals amputated Afib documented BPH HLD Lung disease- check pulse ox Glucose- 110 WBC- 13.2 Obtain MRI to rule out osteomyelitis, May be able to debride wound at bedside Continue Abx, Monitor labs and vitals Supervisory-Addendum Brief Verification & Attestation Participated in pt care: history, MDM, physical Personally performed: exam, history, MDM, supervision of care Care discussed with: Medical Student Procedures: n/a Verification and Attestation of Medical Student E/M Service A medical student performed and documented this service. I then reviewed and verified all information documented by the medical student and made modifications to such information, when appropriate. I personally performed a physical exam, medical decision making and then discussed any differences between the notes and made revisions as necessary to create one note. Salina Neville , 05/27/21 , 17:22 HARSHA NUNEZ May 27, 2021 16:14 SALINA NEVILLE DO May 27, 2021 17:10
[2021-05-27] MEDS ORDERED: PIPERACILLIN SODIUM/TAZOBACTAM 4.5 GM in NS (IVPB) 100 ML IV NR (17:30)
[2021-05-27] MEDS ORDERED: ONDANSETRON 4 MG/2 ML (SDV) Z0FRAN IV PRN (17:45)
[2021-05-27] MEDS ORDERED: CATHETER FLUSH 10 ML SYR IVP PRN (17:45)
[2021-05-27] MEDS: LACTATED RINGERS 1,000 ML IV SCH (17:53)
[2021-05-27] MEDS ORDERED: VANCOMYCIN 2000 MG/NS 500 ML IVPB IV NR ×2 (18:00)
[2021-05-27 19:30] VITALS: BP 136/72
[2021-05-27 23:36] VITALS: BP 113/66
[2021-05-28] MEDS: PIPERACILLIN SODIUM/TAZOBACTAM 4.5 GM in NS (IVPB) 100 ML IV SCH ×3 (00:21→15:14)
[2021-05-28 04:00] VITALS: BP 114/69
[2021-05-28] MEDS: LACTATED RINGERS 1,000 ML IV SCH ×2 (05:41→08:01)
--- NOTE | 2021-05-28 06:31 | Progress Note - Surgery ---
HARSHA NUNEZ 05/28/21 0631: Subjective Date Seen by a Provider: May 28, 2021 Time Seen by a Provider: 06:10 Subjective/Events-last exam Pt feeling ok today, is in no pain. His R foot wound drainage had saturated his dressing overnight. I removed the dressing and noted serosanguinous drainage. The wound still has jacobs tissue that can be removed. His cellulitis on his bolanos is slightly receded from yesterday. Pt on regular diet. Denies CP, palpitations, N/V/D, fever, and chills. Has chronic SOB and cough. Review of Systems General: No Chills; Appetite (good) HEENT: No Head Aches, No Visual Changes Pulmonary: Dyspnea, Cough Cardiovascular: No: Chest Pain, Palpitations Gastrointestinal: No: Nausea, Vomiting, Abdominal Pain, Diarrhea, Constipation, Hematochezia Genitourinary: No Dysuria, No Frequency Musculoskeletal: No: neck pain, leg pain Neurological: No: Change in speech, Confusion Focused Exam Respiratory: No Accessory Muscle Use, No Respiratory Distress, Wheezing Cardiovascular: No Murmur, Irregularly Irregular Peripheral Pulses: 2+ Radial Pulses (R), 2+ Radial Pulses (L) Skin: rash (bilateral bolanos cellulitis), ulcerations (bottom R foot) Objective Exam Vital Signs Date Time Temp Pulse Resp B/P (MAP) Pulse Ox O2 Delivery O2 Flow Rate FiO2 05/28/21 04:00 36.9 93 16 114/69 (84) 96 Room Air 05/27/21 23:36 37.0 84 18 113/66 (82) 96 Room Air 05/27/21 19:55 Room Air 05/27/21 19:30 36.3 90 20 136/72 (93) 97 Room Air 05/27/21 18:15 Room Air 05/27/21 17:19 37.0 84 17 138/91 05/27/21 14:30 37.0 90 17 150/77 (101) I & O 05/28/21 07:00 Intake Total 1220 ml Output Total 775 ml Balance 445 ml Capillary Refill : General Appearance: No Apparent Distress, Obese Respiratory: No Accessory Muscle Use, No Respiratory Distress, Wheezing Cardiovascular: No Murmur, Irregularly Irregular Peripheral Pulses: 2+ Radial Pulses (R), 2+ Radial Pulses (L) Gastrointestinal: no pulsatile mass, distended; No tenderness Extremity: Inflammation (bilateral bolanos cellulitis), Swelling (R ankle), Other (Bottom of R foot has ulcer; serosanguinous drainage saturating dressing) Neurologic/Psychiatric: Alert, Oriented x3, Normal Mood/Affect Skin: Other (bilateral bolanos cellulitis) Results Lab Laboratory Tests 05/27/21 14:50: White Blood Count 13.2H, Red Blood Count 4.36, Hemoglobin 13.1L, Hematocrit 40, Mean Corpuscular Volume 91, Mean Corpuscular Hemoglobin 30, Mean Corpuscular Hemoglobin Concent 33, Red Cell Distribution Width 13.0, Platelet Count 300, Mean Platelet Volume 9.5, Immature Granulocyte % (Auto) 1, Neutrophils (%) (Auto) 81H, Lymphocytes (%) (Auto) 9L, Monocytes (%) (Auto) 9, Eosinophils (%) (Auto) 0, Basophils (%) (Auto) 1, Neutrophils # (Auto) 10.7H, Lymphocytes # (Auto) 1.1, Monocytes # (Auto) 1.1H, Eosinophils # (Auto) 0.0, Basophils # (Auto) 0.1, Immature Granulocyte # (Auto) 0.1, Erythrocyte Sedimentation Rate 108H, Prothrombin Time 16.8H, INR Comment 1.3, Sodium Level 136, Potassium Level 3.7, Chloride Level 100, Carbon Dioxide Level 22, Anion Gap 14, Blood Urea Nitrogen 17, Creatinine 1.21, Estimat Glomerular Filtration Rate 62, BUN/Creatinine Ratio 14, Glucose Level 110H, Mean Blood Glucose 140H, Hemoglobin A1c 6.5H, Calcium Level 9.1, Corrected Calcium 9.6, Total Bilirubin 0.9, Aspartate Amino Transf (AST/SGOT) 87H, Alanine Aminotransferase (ALT/SGPT) 90H, Alkaline Phosphatase 68, Total Protein 7.8, Albumin 3.4 Assessment/Plan Assessment/Plan Assessment/Plan Ulceration on bottom of R foot R bolanos cellulitis HTN Hx osteomyelitis/left metatarsals amputated Afib documented BPH HLD Lung disease WBC-jan 14.9 from 16.8 AST- inc from 87 to 206 ALT- inc from 90 to 207 Obtain MRI to rule out osteomyelitis May be able to debride wound at bedside Continue Abx Hepatitis panel pending Monitor labs and vitals RAMIN NEVILLE DO 05/28/21 1210: Subjective Time Seen by a Provider: 09:49 Subjective/Events-last exam Pt seen and examined, no changes and is wondering how long he will be in hospital. Review of Systems General: No Chills; Appetite (good) HEENT: No Head Aches, No Visual Changes Pulmonary: Dyspnea, Cough Cardiovascular: No: Chest Pain, Palpitations Gastrointestinal: No: Nausea, Vomiting, Abdominal Pain, Diarrhea, Constipation Objective Exam General Appearance: No Apparent Distress, Obese Respiratory: No Accessory Muscle Use, No Respiratory Distress, Wheezing Cardiovascular: No Murmur, Irregularly Irregular Gastrointestinal: no pulsatile mass, distended; No tenderness Extremity: Inflammation (bilateral bolanos cellulitis), Swelling (R ankle), Other (Bottom of R foot has ulcer with some necrotic tissue; serosanguinous drainage saturating dressing) Skin: Other (cellulitis of right bolanos seems less than yesterday) Assessment/Plan Assessment/Plan Assessment/Plan Ulceration on bottom of R foot R bolanos cellulitis HTN Hx osteomyelitis/left metatarsals amputated Afib documented BPH Lung disease WBC-jan 14.9 from 16.8 AST- inc from 87 to 206 ALT- inc from 90 to 207 MRI today did not demonstrate any bony destruction or osteomyelitis, Will try to avoid debridement of wound and will start Santyl with dressing changes. Continue IV Abx, Hepatitis panel pending, Monitor labs and vitals One more day of IV ABX and then switch to oral, probably ok to go home tomorrow and continue to follow up with wound care as outpt. Supervisory-Addendum Brief Verification & Attestation Participated in pt care: history, MDM, physical Personally performed: exam, history, MDM, supervision of care Care discussed with: Medical Student Procedures: n/a Verification and Attestation of Medical Student E/M Service A medical student performed and documented this service. I then reviewed and verified all information documented by the medical student and made modifications to such information, when appropriate. I personally performed a physical exam, medical decision making and then discussed any differences between the notes and made revisions as necessary to create one note. Ramin Neville , 05/28/21 , 12:10 HARSHA NUNEZ May 28, 2021 06:31 RAMIN NEVILLE DO May 28, 2021 12:10
[2021-05-28 06:36] LABS: BASOPHILS % (AUTO) 1 % (0-10); EOSINOPHILS # (AUTO) 0.1 10^3/uL (0.0-0.3); EOSINOPHILS % (AUTO) 1 % (0-10); HEMATOCRIT 39 % (40-54); HEMOGLOBIN 12.8 g/dL (13.3-17.7); LYMPHOCYTES # (AUTO) 0.9 10^3/uL (1.0-4.0); LYMPHOCYTES % (AUTO) 12 % (12-44); MEAN CORPUSCULAR HEMOGLOBIN 30 pg (25-34); MEAN CORPUSCULAR HGB CONC 33 g/dL (32-36); MEAN CORPUSCULAR VOLUME 91 fL (80-99); MEAN PLATELET VOLUME 9.5 fL (9.0-12.2); MONOCYTES # (AUTO) 0.7 10^3/uL (0.0-1.0); MONOCYTES % (AUTO) 9 % (0-12); NEUTROPHILS # (AUTO) 5.3 10^3/uL (1.8-7.8); NEUTROPHILS % (AUTO) 76 % (42-75); PLATELET COUNT 279 10^3/uL (130-400); WHITE BLOOD COUNT 6.9 10^3/uL (4.3-11.0)
[2021-05-28 06:48] LABS: POTASSIUM 3.5 MMOL/L (3.6-5.0)
[2021-05-28 06:50] LABS: CALCIUM 8.5 MG/DL (8.5-10.1)
[2021-05-28 06:52] LABS: BILIRUBIN,TOTAL 0.6 MG/DL (0.1-1.0)
[2021-05-28 06:54] LABS: CREATININE SERUM 1.07 MG/DL (0.60-1.30)
--- NOTE | 2021-05-28 07:23 | History & Physical ---
HPI History of Present Illness: 75 yo male reports he had history of infection in right foot for years, it would cover over and on may 23 when he took his sock off, his skin came off with it. He went to see wound care yesterday and they sent him to the hospital. Denies fever. Has history of osteomyelitis in left foot and had all toes amputated, do ne by Dr. Gant around 2014. He reports he has had blood flow testing 4 or 5 times in the past and that it has all been okay. He thinks the last check was last summer through [facility]. Source: patient Date seen by provider: May 28, 2021 Time Seen by Provider: 07:20 Attending Physician Marielle Baltazar MD PCP Denis Stephenson MD Consult Date of Admission May 27, 2021 at 16:55 Home Medications Home Medications Reviewed patient Home Medication Reconciliation performed by pharmacy medication reconciliations explosive ordnance technician and/or nursing. Patients Allergies have been reviewed. Allergies Coded Allergies: No Known Drug Allergies (Unverified , 06/17/17) [id number]-Avrdgt Hx Patient Social History Smoking Status: Former Smoker Recent Hopitalizations: No Alcohol Use?: No (history of alcoholism, last drink 2003) Have you traveled recently?: No Immunizations Up To Date Influenza Vaccine Up-to-Date: No; Not Current First/Initial COVID19 Vaccinat: 2020 Second COVID19 Vaccination Yuval: 2020 Third COVID19 Vaccination Date: 2020 COVID19 Vaccine Mail Handler: MODERNA Past Medical History PMHx: Osteomyelitis left toes HTN HLD Alcoholic cirrhosis Esophageal variceal rupture SurgHx: Left toes amputations Family Medical History Significant Family History: Cancer (breast cancer-mom), Diabetes (mom), Stroke (mom) Review of Systems ([facility]) Constitutional: No fever EENTM: No nose congestion, No throat pain Respiratory: short of breath (chronic) Cardiovascular: No chest pain Gastrointestinal: No abdominal pain, No constipation, No diarrhea, No nausea, No vomiting Genitourinary: No dysuria Musculoskeletal: joint pain ("arthritis") Skin: No rash Psychiatric/Neurological: Denies Depressed Reviewed Test Results Reviewed Test Results Lab Laboratory Tests Test 05/27/21 14:50 05/28/21 05:55 Range/Units White Blood Count 13.2 H 6.9 4.3-11.0 10^3/uL Red Blood Count 4.36 4.27 L 4.30-5.52 10^6/uL Hemoglobin 13.1 L 12.8 L 13.3-17.7 g/dL Hematocrit 40 39 L 40-54 % Mean Corpuscular Volume 91 91 80-99 fL Mean Corpuscular Hemoglobin 30 30 25-34 pg Mean Corpuscular Hemoglobin Concent 33 33 32-36 g/dL Red Cell Distribution Width 13.0 13.1 10.0-14.5 % Platelet Count 300 279 130-400 10^3/uL Mean Platelet Volume 9.5 9.5 9.0-12.2 fL Immature Granulocyte % (Auto) 1 1 % Neutrophils (%) (Auto) 81 H 76 H 42-75 % Lymphocytes (%) (Auto) 9 L 12 12-44 % Monocytes (%) (Auto) 9 9 0-12 % Eosinophils (%) (Auto) 0 1 0-10 % Basophils (%) (Auto) 1 1 0-10 % Neutrophils # (Auto) 10.7 H 5.3 1.8-7.8 10^3/uL Lymphocytes # (Auto) 1.1 0.9 L 1.0-4.0 10^3/uL Monocytes # (Auto) 1.1 H 0.7 0.0-1.0 10^3/uL Eosinophils # (Auto) 0.0 0.1 0.0-0.3 10^3/uL Basophils # (Auto) 0.1 0.0 0.0-0.1 10^3/uL Immature Granulocyte # (Auto) 0.1 0.1 0.0-0.1 10^3/uL Erythrocyte Sedimentation Rate 108 H 0-30 MM/HR Prothrombin Time 16.8 H 12.2-14.7 SEC INR Comment 1.3 0.8-1.4 Sodium Level 136 137 135-145 MMOL/L Potassium Level 3.7 3.5 L 3.6-5.0 MMOL/L Chloride Level 100 104 98-107 MMOL/L Carbon Dioxide Level 22 18 L 21-32 MMOL/L Anion Gap 14 15 H 5-14 MMOL/L Blood Urea Nitrogen 17 17 7-18 MG/DL Creatinine 1.21 1.07 0.60-1.30 MG/DL Estimat Glomerular Filtration Rate 62 72 BUN/Creatinine Ratio 14 16 Glucose Level 110 H 108 H 70-105 MG/DL Mean Blood Glucose 140 H <=126 mg/dL Hemoglobin A1c 6.5 H 4.0-5.6 % Calcium Level 9.1 8.5 8.5-10.1 MG/DL Corrected Calcium 9.6 9.3 8.5-10.1 MG/DL Total Bilirubin 0.9 0.6 0.1-1.0 MG/DL Aspartate Amino Transf (AST/SGOT) 87 H 206 H 5-34 U/L Alanine Aminotransferase (ALT/SGPT) 90 H 208 H 0-55 U/L Alkaline Phosphatase 68 70 40-136 U/L Total Protein 7.8 7.0 6.4-8.2 GM/DL Albumin 3.4 3.0 L 3.2-4.5 GM/DL Radiology NDICATION: Right foot wound. TIME OF EXAM: 2:59 PM. COMPARISON: No prior studies are available for comparison. FINDINGS: There is a bunion deformity noted. There are degenerative changes at the 1st MTP joint. There appear to be hammertoe deformities. There is an old fracture of the distal 5th metatarsal. No definite bony destructive changes are seen. There appears to be some soft tissue swelling about the foot but no soft tissue gas is identified. The midfoot and hindfoot are unremarkable apart from a large plantar calcaneal spur. IMPRESSION: Chronic changes and soft tissue swelling. No definite bony destructive changes are seen. CHEST 1 VIEW, AP/PA ONLY INDICATION: Foot wound. TIME OF EXAM: 02:57 p.m. COMPARISON: No prior studies are available for comparison. FINDINGS: The heart appears enlarged. Lungs are clear. No infiltrates are seen. There is no effusion or pneumothorax. IMPRESSION: No acute cardiopulmonary process is detected. Physical Exam-([facility]) Physical Exam Vital Signs VS - Last 72 Hours, by Label 05/27/21 05/27/21 05/27/21 05/27/21 14:30 17:19 18:15 19:30 Temp 37.0 37.0 36.3 Pulse 90 84 90 Resp 17 17 20 B/P (MAP) 150/77 (101) 138/91 136/72 (93) Pulse Ox 97 O2 Delivery Room Air Room Air 05/27/21 05/27/21 05/28/21 19:55 23:36 04:00 Temp 37.0 36.9 Pulse 84 93 Resp 18 16 B/P (MAP) 113/66 (82) 114/69 (84) Pulse Ox 96 96 O2 Delivery Room Air Room Air Room Air Capillary Refill : General Appearance: no apparent distress Respiratory: lungs clear, normal breath sounds Cardiovascular: regular rate, rhythm, no murmur Gastrointestinal: normal bowel sounds, non tender, distended (mild, protuberant but not tight) Extremities: no pedal edema, other (chronic venous stasis changes to left lower leg, transmetatarsal amputation left foot. Right leg with erthema and peeling of most of bolanos, foot wrapped in dressing with no drainage on bandage) Neurologic/Psychiatric: alert, normal mood/affect Assessment/Plan Assessment/Plan Admission Status: Observation (1) Cellulitis Status: Acute Assessment & Plan: Zosyn and vancomycin day 2 Qualifiers: (2) Open wound of plantar aspect of foot Status: Acute Assessment & Plan: MRI pending to eval for osteomyelitis, Surgery consulted, a ppreciate recommendations. Qualifiers: Qualified Codes: S91.301A - Unspecified open wound, right foot, initial encounter (3) Hypertension Status: Chronic Assessment & Plan: Home meds Qualifiers: Qualified Codes: I10 - Essential (primary) hypertension (4) Hyperlipidemia Status: Chronic Assessment & Plan: Home meds (5) Atrial fibrillation Status: Chronic Assessment & Plan: Not on chronic anticoagulation (6) Elevated liver enzymes Status: Acute Assessment & Plan: Known history of cirrhosis, but reportedly without complication. LFTs increased, monitor closely. (7) BPH (benign prostatic hyperplasia) Status: Chronic Assessment & Plan: Home meds (8) Alcoholic cirrhosis Status: Chronic Qualifiers: Qualified Codes: K70.30 - Alcoholic cirrhosis of liver without ascites (9) DVT prophylaxis Status: Acute Assessment & Plan: Hold pharmacologic until procedure determination MARIELLE BALTAZAR MD May 28, 2021 07:23
[2021-05-28] MEDS ORDERED: MTP100TCR PO (08:18)
[2021-05-28] MEDS ORDERED: FINA5TAB6 PO (08:18)
[2021-05-28] MEDS ORDERED: KCL 20 MEQ TAB (K-DUR) PO ONE (08:30)
[2021-05-28] MEDS: amLODIPine 5 MG (NORVASC) TAB PO SCH (08:38)
[2021-05-28 08:50] VITALS: BP 138/66
[2021-05-28] MEDS ORDERED: FINASTERIDE (PROSCAR) 5 MG TAB PO SCH (09:00)
[2021-05-28] MEDS ORDERED: meTOprolol SUCCINATE 100 MG (TOPROL XL) TAB PO SCH (09:00)
[2021-05-28] MEDS ORDERED: GADOTERATE 0.5 MMOL/ML (CLARISCAN) 20 ML VIAL IV ONE (11:00)
[2021-05-28 11:40] VITALS: BP 127/69
--- NOTE | 2021-05-28 12:58 | Diagnostic Imaging Report ---
PROCEDURE: MR imaging right lower extremity with and without contrast. TECHNIQUE: Multiplanar, multisequence pre and post contrast-enhanced MR imaging of the right lower extremity was accomplished. INDICATION: Cellulitis of the right lower extremity. Wound in the plantar right foot COMPARISON: Radiographs from 05/27/2021 FINDINGS: There is marked motion artifact on multiple sequences resulting in suboptimal evaluation. Sequences were repeated, but no significant improvement. Postcontrast images in particular markedly suboptimal. There is bone marrow edema at the 3rd metatarsal head and the stump of the 2nd metatarsal, there does appear to be T1-weighted hypointensity in these regions as well (image 5 series 8). The great toe proximal phalanx demonstrates bone marrow edema throughout, with T1-weighted marrow replacement at the plantar base. There is deformity of the distal 3rd metatarsal which appears foreshortened. There also appears to be deformity of the 4th toe proximal phalanx. No large joint effusion is seen. There is extensive superficial and deep soft tissue edema and enhancement throughout the metatarsophalangeal joints. There appears to be a soft tissue ulceration plantar to the 1st MTP joint and plantar to the 2nd and 3rd MTP joints. There is necrotic tissue. No drainable fluid collection is seen. The flexor and extensor tendons appear intact. There is generalized muscular atrophy, which is likely neurogenic. IMPRESSION: 1. Suboptimal examination due to significant motion artifact. 2. Findings concerning for osteomyelitis of the right 3rd metatarsal head and 2nd metatarsal stump as well as the plantar aspect of the 1st proximal phalangeal base. 3. Superficial and deep soft tissue infection, with plantar ulcerations, but no drainable fluid collection is seen on this exam. Dictated by: Dictated on workstation # [id number]
[2021-05-28 15:16] VITALS: BP 135/71
[2021-05-28] MEDS ORDERED: VANCOMYCIN 1500 MG/NS 500 ML IVPB IV SCH ×4 (18:00→20:00)
[2021-05-28 19:35] VITALS: BP 137/72
[2021-05-28 22:03] LABS: HEPATITIS C ANTIBODY C Non-Reactive (Non-Reactive)
[2021-05-28 23:41] VITALS: BP 142/77
[2021-05-29] MEDS: PIPERACILLIN SODIUM/TAZOBACTAM 4.5 GM in NS (IVPB) 100 ML IV SCH ×3 (01:20→15:35)
[2021-05-29] MEDS: LACTATED RINGERS 1,000 ML IV SCH ×2 (01:29→06:42)
[2021-05-29 03:54] VITALS: BP 163/80
[2021-05-29 05:59] LABS: HEMATOCRIT 38 % (40-54); HEMOGLOBIN 12.6 g/dL (13.3-17.7); MEAN CORPUSCULAR HEMOGLOBIN 30 pg (25-34); MEAN CORPUSCULAR HGB CONC 33 g/dL (32-36); MEAN CORPUSCULAR VOLUME 91 fL (80-99); MEAN PLATELET VOLUME 9.3 fL (9.0-12.2); PLATELET COUNT 331 10^3/uL (130-400); WHITE BLOOD COUNT 7.6 10^3/uL (4.3-11.0)
[2021-05-29 06:07] LABS: ALBUMIN 3.2 GM/DL (3.2-4.5); BILIRUBIN,TOTAL 0.9 MG/DL (0.1-1.0); CALCIUM 8.5 MG/DL (8.5-10.1); CREATININE SERUM 1.01 MG/DL (0.60-1.30); POTASSIUM 3.9 MMOL/L (3.6-5.0); TOTAL PROTEIN 7.5 GM/DL (6.4-8.2)
[2021-05-29] MEDS: amLODIPine 5 MG (NORVASC) TAB PO SCH (07:46)
[2021-05-29 08:31] VITALS: BP 163/79
[2021-05-29] MEDS ORDERED: COLLAGENASE 30 GM (SANTYL) TUBE TP SCH (09:00)
[2021-05-29] MEDS ORDERED: CEFT2PIG IV (10:41)
--- NOTE | 2021-05-29 11:14 | Progress Note - Hospitalist ---
HARVEY MCDONALD MED STUDENT 05/29/21 1114: Subjective HPI/CC On Admission Date Seen by Provider: May 29, 2021 Time Seen by Provider: 08:30 cellulitis of RE lower extremity w/ possible osteomyelitis Subjective/Events-last exam Today the patient feels tired due to lack of sleep. He denies pain. He has been ambulating and had a BM. He has trouble urinating 2/2 BPH. We discussed the MRI results. He is agreeable to continuing IV antibiotics before discussing further surgery. Review of Systems HEENT: No Head Aches, No Eye Pain Pulmonary: No Dyspnea, No Cough Cardiovascular: No: Chest Pain, Palpitations, Edema Gastrointestinal: No: Nausea, Vomiting, Abdominal Pain Genitourinary: Other (difficulty urinating 2/2 BPH) Musculoskeletal: No: neck pain, leg pain, foot pain Neurological: No: Weakness, Numbness, Change in speech Objective Exam Vital Signs Vital Signs Date Time Temp Pulse Resp B/P (MAP) Pulse Ox O2 Delivery O2 Flow Rate FiO2 05/29/21 08:31 36.9 107 20 163/79 (107) 97 Room Air Capillary Refill : General Appearance: No Apparent Distress, WD/WN, Other (tired) HEENT: PERRL/EOMI, Moist Mucous Membranes Respiratory: Lungs Clear, Wheezing Cardiovascular: Regular Rate, Rhythm Gastrointestinal: Normal Bowel Sounds, Distended Rectal: Deferred Extremity: Calf Tenderness, Inflammation, Other (bandages on R foot are clean, dry, intact) Neurologic/Psychiatric: Alert, Oriented x3, No Motor/Sensory Deficits Skin: No Normal Color; Erythema Results/Procedures Lab Laboratory Tests 05/29/21 05:25 Patient resulted labs reviewed. Imaging: Reviewed Imaging Films, Reviewed Imaging Report Radiology ate of Exam:05/28/21 MRI RT LOWER EXT W/WO CON PROCEDURE: MR imaging right lower extremity with and without contrast. TECHNIQUE: Multiplanar, multisequence pre and post contrast-enhanced MR imaging of the right lower extremity was accomplished. INDICATION: Cellulitis of the right lower extremity. Wound in the plantar right foot COMPARISON: Radiographs from 05/27/2021 FINDINGS: There is marked motion artifact on multiple sequences resulting in suboptimal evaluation. Sequences were repeated, but no significant improvement. Postcontrast images in particular markedly suboptimal. There is bone marrow edema at the 3rd metatarsal head and the stump of the 2nd metatarsal, there does appear to be T1-weighted hypointensity in these regions as well (image 5 series 8). The great toe proximal phalanx demonstrates bone marrow edema throughout, with T1-weighted marrow replacement at the plantar base. There is deformity of the distal 3rd metatarsal which appears foreshortened. There also appears to be deformity of the 4th toe proximal phalanx. No large joint effusion is seen. There is extensive superficial and deep soft tissue edema and enhancement throughout the metatarsophalangeal joints. There appears to be a soft tissue ulceration plantar to the 1st MTP joint and plantar to the 2nd and 3rd MTP joints. There is necrotic tissue. No drainable fluid collection is seen. The flexor and extensor tendons appear intact. There is generalized muscular atrophy, which is likely neurogenic. IMPRESSION: 1. Suboptimal examination due to significant motion artifact. 2. Findings concerning for osteomyelitis of the right 3rd metatarsal head and 2nd metatarsal stump as well as the plantar aspect of the 1st proximal phalangeal base. 3. Superficial and deep soft tissue infection, with plantar ulcerations, but no drainable fluid collection is seen on this exam. Dictated by: Dictated on workstation # [id number] Dict: 05/28/21 1246 Trans: 05/28/21 1455 [facility] [id number] Interpreted by: KAREY CLARK MD Electronically signed by: KAREY CLARK MD 05/28/21 1455 Diagnosis/Problems Diagnosis/Problems (1) Cellulitis Status: Acute Assessment & Plan: surgery was consulted and debrided wound. Surgery wants to try IV antibiotics before discussing further surgical measures. Switch IV antibiotics. continue dressing changes. Qualifiers: (2) Osteomyelitis of ankle or foot, right, acute Status: Acute Assessment & Plan: MRI showed possible osteomyelitis in 3 locations on R lower extremity/foot. Consult Pharm and Weaving Supervisor for at home IV antibiotics. Start IV ceftriaxone daily for 6 weeks (end on 07/10/2021). (3) Open wound of plantar aspect of foot Status: Acute Qualifiers: Qualified Codes: S91.301A - Unspecified open wound, right foot, initial encounter (4) Atrial fibrillation Status: Chronic (5) Alcoholic cirrhosis Status: Chronic Assessment & Plan: monitor liver enzymes Qualifiers: Qualified Codes: K70.30 - Alcoholic cirrhosis of liver without ascites (6) Hypertension Status: Chronic Assessment & Plan: continue home medication as appropriate Qualifiers: Qualified Codes: I10 - Essential (primary) hypertension (7) Hyperlipidemia Status: Chronic Assessment & Plan: continue home medication as appropriate (8) Elevated liver enzymes Status: Acute (9) BPH (benign prostatic hyperplasia) Status: Chronic (10) DVT prophylaxis Status: Acute MARIELLE BALTAZAR MD 05/29/21 1635: Assessment/Plan Assessment and Plan Assess & Plan/Chief Complaint See discharge summary Supervisory-Addendum Brief Verification & Attestation Participated in pt care: history, MDM, physical Personally performed: exam, history, MDM Care discussed with: Medical Student Procedures: n/a I personally saw and examined patient today, but I did not verify the medical student findings, please see discharge summary for my exam and assessment and plan. HARVEY MCDONALD MED STUDENT May 29, 2021 11:14 MARIELLE BALTAZAR MD May 29, 2021 16:35
[2021-05-29 11:26] VITALS: BP 137/69
--- NOTE | 2021-05-29 15:15 | Diagnostic Imaging Report ---
INDICATION: PICC line placement. EXAMINATION: Chest, 05/29/2021. COMPARISON: 05/27/2021. FINDINGS: Single view of the chest demonstrate a right-sided PICC line with the tip at the junction of the SVC and right atrium. The heart is slightly prominent. Pulmonary vasculature normal. Lungs and pleural spaces clear. IMPRESSION: PICC line tip, as above, with otherwise negative chest. Dictated by: Dictated on workstation # [id number]
[2021-05-29 15:26] VITALS: BP 136/78
--- NOTE | 2021-05-29 16:33 | Discharge Summary ---
Discharge Summary Instructions for Patient [facility] home Health Assessment/Instructions Follow up with primary physician within one week of discharge. Follow up with wound care clinic outpatient. Physician to follow Patient: Denis Stephenson MD Discharge Diet for Home: Cardiac Diet Hospital Course Date of Admission: May 27, 2021 at 16:55 Admission Diagnosis : See problem list Family Physician/Provider: Denis Stephenson MD Date of Discharge: 05/29/21 Discharge Diagnosis: Right leg cellulitis Right foot wound Right third metatarsal head osteomyelitis Right 2nd metatarsal stump osteomyelitis Right first proximal phalangeal base osteomyelitis Hospital Course: Pt was admitted with cellulitis and concern for osteomyelitis related to right foot wound. He was seen by Surgery and had MRI which was concerning for possible osteomyelitis with no drainable fluid collections, so he was offered 6 weeks of IV antibiotics. He had PICC line placed and was discharged with home health and plan for ceftriaxone 2 grams daily x 6 weeks. He will continue to follow with outpatient wound care at [facility] as well. He may need repeat testing of his arterial flow, he reported he has had testing done, but records were not available. Labs and Pending Lab Test: Laboratory Tests 05/29/21 05:25: White Blood Count 7.6, Red Blood Count 4.21L, Hemoglobin 12.6L, Hematocrit 38L, Mean Corpuscular Volume 91, Mean Corpuscular Hemoglobin 30, Mean Corpuscular Hemoglobin Concent 33, Red Cell Distribution Width 12.7, Platelet Count 331, Mean Platelet Volume 9.3, Sodium Level 139, Potassium Level 3.9, Chloride Level 106, Carbon Dioxide Level 19L, Anion Gap 14, Blood Urea Nitrogen 12, Creatinine 1.01, Estimat Glomerular Filtration Rate 78, BUN/Creatinine Ratio 12, Glucose Level 122H, Calcium Level 8.5, Corrected Calcium 9.1, Total Bilirubin 0.9, Aspartate Amino Transf (AST/SGOT) 118H, Alanine Aminotransferase (ALT/SGPT) 204H , Alkaline Phosphatase 82, Total Protein 7.5, Albumin 3.2 Microbiology 05/27/21 Blood Culture - Preliminary, Resulted No growth Home Meds Active Ceftriaxone 2 gm-D5w Bag (Ceftriaxone Na/Dextrose,Iso) 2 Gm/50 Ml Piggyback 2 Gm IV DAILY 42 Days Reported Metoprolol Succinate 100 Mg Tab.er.24h 100 Mg PO HS Finasteride 5 Mg Tablet 5 Mg PO HS Aspirin 81 Mg Tab.chew 81 Mg PO DAILY Amlodipine Besylate 5 Mg Tablet 5 Mg PO DAILY Atorvastatin Calcium 40 Mg Tablet 40 Mg PO HS Acid Glass Etcher Helper (FAMOTIDINE) (Famotidine) 20 Mg Tablet 20 Mg PO BID PRN Consulations General Surgery Patient Allergies: Coded Allergies: No Known Drug Allergies (Unverified , 06/17/17) Height (Feet): 5 Height (Inches): 9.00 Weight (Pounds): 214 Weight (Ounces): 0.0 Home Health Need/Face to Face Date of Face to Face: May 29, 2021 Clinical Findings: Non-healing wound I have seen Pt [id number]: Yes Discharged To: Home Diagnosis/Conditions: See problem list Problems/Diagnosis/Condition: (1) Alcoholic cirrhosis (2) Osteomyelitis of ankle or foot, right, acute (3) Cellulitis (4) Open wound of plantar aspect of foot (5) Hypertension (6) Hyperlipidemia (7) Atrial fibrillation (8) Elevated liver enzymes (9) BPH (benign prostatic hyperplasia) Patient is Homebound due to: Pain w/ambulation Homebound Status Due to the above stated illness, injury or surgical procedure (medical condi tion or diagnosis) and associated clinical findings, the patient is homebound because of his/her inability to leave home except with aid of a supportive device and/or person AND leaving the home requires a considerable and taxing effort or is medically contraindicated. Pt req the following assistanc: Aid of another person Home Health Nursing Orders Home Health Services Order: Nursing Services, Wound Care-Eval/Treat Home Health Infusion Therapy Line Start Date: May 29, 2021 Certify Stmt I certify that this patient is under my care and that I, a nurse practitioner or a physician; a diploma medical assistant working with me, had a face to face encounter that - meets the physician face to face encounter requirements with this patient as dated. Discharge Physical Exam General: Alert, No Acute Distress Lungs: Clear to Auscultation, Normal Air Movement Heart: Regular Rate, No Murmurs Extremities: Other (dressing in place to right foot with no drainage) Neuro: Normal Speech Psych/Mental Status: Other (mood irritable) MARIELLE BALTAZAR MD May 29, 2021 16:32
--- NOTE | 2021-05-29 17:15 | Progress Note - Surgery ---
Subjective Time Seen by a Provider: 09:47 Subjective/Events-last exam Pt seen and examined, no changes. Review of Systems pt non-communicative Objective Exam Vital Signs Date Time Temp Pulse Resp B/P (MAP) Pulse Ox O2 Delivery O2 Flow Rate FiO2 05/29/21 15:26 36.9 95 18 136/78 (97) 98 Room Air 05/29/21 11:26 36.8 102 19 137/69 (91) 95 Room Air 05/29/21 08:31 36.9 107 20 163/79 (107) 97 Room Air 05/29/21 08:00 Room Air 05/29/21 03:54 37.4 93 18 163/80 (107) 96 Room Air 05/28/21 23:41 37.3 83 18 142/77 (98) 95 Room Air 05/28/21 20:13 Room Air 05/28/21 19:35 37.2 93 20 137/72 (93) 96 Room Air I & O 05/29/21 06:59 Intake Total 3390 ml Output Total 3300 ml Balance 90 ml Capillary Refill : General Appearance: No Apparent Distress, Other (tired) HEENT: PERRL/EOMI, Moist Mucous Membranes Respiratory: Lungs Clear, Wheezing Cardiovascular: Tachycardia Peripheral Pulses: 2+ Radial Pulses (R), 2+ Radial Pulses (L) Gastrointestinal: no pulsatile mass, distended; No tenderness Extremity: Calf Tenderness, Inflammation, Other (bandages on R foot are clean, dry, intact) Neurologic/Psychiatric: Alert, Oriented x3, No Motor/Sensory Deficits Skin: No Normal Color; Erythema Results Lab Laboratory Tests 05/29/21 05:25: White Blood Count 7.6, Red Blood Count 4.21L, Hemoglobin 12.6L, Hematocrit 38L, Mean Corpuscular Volume 91, Mean Corpuscular Hemoglobin 30, Mean Corpuscular Hemoglobin Concent 33, Red Cell Distribution Width 12.7, Platelet Count 331, Mean Platelet Volume 9.3, Sodium Level 139, Potassium Level 3.9, Chloride Level 106, Carbon Dioxide Level 19L, Anion Gap 14, Blood Urea Nitrogen 12, Creatinine 1.01, Estimat Glomerular Filtration Rate 78, BUN/Creatinine Ratio 12, Glucose Level 122H, Calcium Level 8.5, Corrected Calcium 9.1, Total Bilirubin 0.9, Aspartate Amino Transf (AST/SGOT) 118H, Alanine Aminotransferase (ALT/SGPT) 204H , Alkaline Phosphatase 82, Total Protein 7.5, Albumin 3.2 Microbiology 05/27/21 Blood Culture - Preliminary, Resulted No growth Assessment/Plan Assessment/Plan Assessment/Plan Ulceration on bottom of R foot - MRI confirms Osteomyelitis R bolanos cellulitis HTN Afib documented BPH Lung disease MRI preliminary read as no bony destruction or osteomyelitis; however, the final over-read does confirm Osteomyelitis. Will try to avoid amputation and treat with Santyl with dressing changes. PICC line and IV Abx for 6-8 weeks. Outpt wound care and pt will follow up in the clinic. SALINA NEVILLE DO May 29, 2021 17:15
[2021-05-29 17:32] VITALS: BP 136/78
[2021-05-29] MEDS ORDERED: TROUGH ORDER-PHARMACY XX NR (19:00)
[2021-05-29] MEDS ORDERED: meTOprolol SUCCINATE 100 MG (TOPROL XL) TAB PO SCH (21:00)
[2021-05-29] MEDS ORDERED: FINASTERIDE (PROSCAR) 5 MG TAB PO SCH (21:00)
== END 2021-05-29 17:35 | disposition home health service (06) ==
LOC: EDUNIT# 14:23 → ER 14:24 → UNDOADMOB 16:55 → 4TH 16:55 → UNDODISOB 05-29 18:00
PROVIDERS: ADMIT Family Medicine; ATTEND Family Medicine
DX: L03.115 Cellulitis of right lower limb (principal); S91.301A Unspecified open wound, right foot, initial encounter; M86.9 Osteomyelitis, unspecified; I10 Essential (primary) hypertension; I48.91 Unspecified atrial fibrillation; E78.5 Hyperlipidemia, unspecified; N40.0 Benign prostatic hyperplasia without lower urinary tract symptoms; R05.3 Chronic cough; K70.30 Alcoholic cirrhosis of liver without ascites; J98.9 Respiratory disorder, unspecified; R74.01 Elevation of levels of liver transaminase levels; Z95.9 Presence of cardiac and vascular implant and graft, unspecified; Z79.899 Other long term (current) drug therapy; Z87.891 Personal history of nicotine dependence
CPT/HCPCS: 36569; 71045 ×2; 73630; 73720; 76937; 80053 ×3; 80074; 83036; 85025 ×2; 85027; 85610; 85652; 87040; 93005; 96374 ×2; 96375; 96376; 99284; C1751; G0378; 36415

== ENCOUNTER → 2021-05-27 | Outpatient (CLI) | payer MEDICARE ==
[~2021-05-27] MED LIST changes: +ACHD5005 PO; +AMLO-250 PO; -AMLO5TAB2 PO; +CEFT2PIG IV; +FINA5TAB6 PO; -METO-370 PO; +METO50TA7 PO; -MISO200T4 PO; +MISO200T66 PO; +MTP100TCR PO
== END ==
LOC: WOUNDCARE 13:10
PROVIDERS: ATTEND Family Medicine
DX: I96 Gangrene, not elsewhere classified (principal); L97.513 Non-pressure chronic ulcer of other part of right foot with necrosis of muscle; L03.115 Cellulitis of right lower limb; I89.0 Lymphedema, not elsewhere classified; N18.30 Chronic kidney disease, stage 3 unspecified
CPT/HCPCS: 99204; 99214

== ENCOUNTER → 2021-06-03 | Outpatient (CLI) | payer MEDICARE ==
[~2021-06-03] MED LIST changes: +CEFT2PIG IV; +FINA5TAB6 PO; +MTP100TCR PO
== END ==
LOC: WOUNDCARE 10:50
PROVIDERS: ATTEND Family Medicine
DX: E11.621 Type 2 diabetes mellitus with foot ulcer (principal); L97.513 Non-pressure chronic ulcer of other part of right foot with necrosis of muscle; L03.115 Cellulitis of right lower limb; I89.0 Lymphedema, not elsewhere classified; E11.22 Type 2 diabetes mellitus with diabetic chronic kidney disease; N18.30 Chronic kidney disease, stage 3 unspecified; E11.40 Type 2 diabetes mellitus with diabetic neuropathy, unspecified; E11.52 Type 2 diabetes mellitus with diabetic peripheral angiopathy with gangrene; I96 Gangrene, not elsewhere classified
CPT/HCPCS: 11043; 11046; 87070; 87205; A6260; G0463; 87077

== ENCOUNTER → 2021-06-11 | Outpatient (CLI) | payer MEDICARE | LOC: WOUNDCARE 13:24 | PROVIDERS: ATTEND Family Medicine | DX: L97.513 Non-pressure chronic ulcer of other part of right foot with necrosis of muscle (principal); L03.115 Cellulitis of right lower limb; I89.0 Lymphedema, not elsewhere classified; E11.22 Type 2 diabetes mellitus with diabetic chronic kidney disease; N18.30 Chronic kidney disease, stage 3 unspecified; E11.621 Type 2 diabetes mellitus with foot ulcer; E11.40 Type 2 diabetes mellitus with diabetic neuropathy, unspecified; E11.52 Type 2 diabetes mellitus with diabetic peripheral angiopathy with gangrene | CPT/HCPCS: 11043; 11046; G0463 ==

== ENCOUNTER → 2021-06-17 | Outpatient (CLI) | payer MEDICARE | LOC: WOUNDCARE 13:21 | PROVIDERS: ATTEND Family Medicine | DX: I89.0 Lymphedema, not elsewhere classified (principal); L97.513 Non-pressure chronic ulcer of other part of right foot with necrosis of muscle; N18.30 Chronic kidney disease, stage 3 unspecified; E11.9 Type 2 diabetes mellitus without complications; E11.621 Type 2 diabetes mellitus with foot ulcer; E11.40 Type 2 diabetes mellitus with diabetic neuropathy, unspecified; M86.171 Other acute osteomyelitis, right ankle and foot; E11.52 Type 2 diabetes mellitus with diabetic peripheral angiopathy with gangrene | CPT/HCPCS: 11043; 11046; G0463 ==

== ENCOUNTER → 2021-06-24 | Outpatient (CLI) | payer MEDICARE | LOC: WOUNDCARE 13:24 | PROVIDERS: ATTEND Family Medicine | DX: I89.0 Lymphedema, not elsewhere classified (principal); E11.22 Type 2 diabetes mellitus with diabetic chronic kidney disease; N18.30 Chronic kidney disease, stage 3 unspecified; E11.621 Type 2 diabetes mellitus with foot ulcer; E11.40 Type 2 diabetes mellitus with diabetic neuropathy, unspecified; M86.171 Other acute osteomyelitis, right ankle and foot; L97.514 Non-pressure chronic ulcer of other part of right foot with necrosis of bone; E11.52 Type 2 diabetes mellitus with diabetic peripheral angiopathy with gangrene | CPT/HCPCS: 11044; 11047; G0463 ==

== ENCOUNTER → 2021-07-01 | Outpatient (CLI) | payer MEDICARE | LOC: WOUNDCARE 13:23 | PROVIDERS: ATTEND Family Medicine | DX: E11.621 Type 2 diabetes mellitus with foot ulcer (principal); L97.514 Non-pressure chronic ulcer of other part of right foot with necrosis of bone; I89.0 Lymphedema, not elsewhere classified; E11.22 Type 2 diabetes mellitus with diabetic chronic kidney disease; N18.30 Chronic kidney disease, stage 3 unspecified; E11.40 Type 2 diabetes mellitus with diabetic neuropathy, unspecified; E11.69 Type 2 diabetes mellitus with other specified complication; M86.171 Other acute osteomyelitis, right ankle and foot; E11.52 Type 2 diabetes mellitus with diabetic peripheral angiopathy with gangrene; I96 Gangrene, not elsewhere classified | CPT/HCPCS: 11042; G0463 ==

== ENCOUNTER → 2021-07-07 | Outpatient (CLI) | payer MEDICARE ==
[~2021-07-07] MED LIST changes: +GADOTERATE 0.5 MMOL/ML (CLARISCAN) 20 ML VIAL IV ONE
--- NOTE | 2021-07-07 11:24 | Diagnostic Imaging Report ---
PROCEDURE: MR imaging right lower extremity with and without contrast. TECHNIQUE: Multiplanar, multisequence pre and post contrast-enhanced MR imaging of the right lower extremity was accomplished. INDICATION: Diabetic ulcer on the forefoot. COMPARISON: 05/28/2021. FINDINGS: A small ulcer is present plantar aspect of the forefoot which has a sinus tract extending deep to the level the 2nd metatarsal head. There is combination of erosions, T1 hypointensity and enhancing edema within the 2nd metatarsal head indicative of osteomyelitis. The base of the 2nd metatarsal head is also likely involved by osteomyelitis given associated T2 hyperintense marrow signal. No drainable abscess is associated with a sinus tract. No additional sites of osteomyelitis. Fatty atrophy of the intrinsic muscles of foot is likely due to long-standing diabetes. Subcutaneous edema is present along the dorsal aspect of foot. There is some mild enhancement indicative of cellulitis. IMPRESSION: 1. Plantar ulcer in the forefoot results in osteomyelitis of the underlying 2nd metatarsal head. 2. The base of the 2nd proximal phalanx also likely has early osteomyelitis present. Dictated by: Dictated on workstation # [id number]
== END ==
LOC: RAD 08:04
PROVIDERS: ATTEND Family Medicine
DX: E11.621 Type 2 diabetes mellitus with foot ulcer (principal); L97.514 Non-pressure chronic ulcer of other part of right foot with necrosis of bone; I89.0 Lymphedema, not elsewhere classified; E11.22 Type 2 diabetes mellitus with diabetic chronic kidney disease; N18.30 Chronic kidney disease, stage 3 unspecified; E11.40 Type 2 diabetes mellitus with diabetic neuropathy, unspecified; M86.171 Other acute osteomyelitis, right ankle and foot; E11.69 Type 2 diabetes mellitus with other specified complication; M86.8X7 Other osteomyelitis, ankle and foot
CPT/HCPCS: 73720

== ENCOUNTER → 2021-07-08 | Outpatient (CLI) | payer MEDICARE ==
[~2021-07-08] MED LIST changes: -GADOTERATE 0.5 MMOL/ML (CLARISCAN) 20 ML VIAL IV ONE
== END ==
LOC: WOUNDCARE 13:11
PROVIDERS: ATTEND Family Medicine
DX: I89.0 Lymphedema, not elsewhere classified (principal); N18.30 Chronic kidney disease, stage 3 unspecified; E11.65 Type 2 diabetes mellitus with hyperglycemia; E11.40 Type 2 diabetes mellitus with diabetic neuropathy, unspecified; M86.171 Other acute osteomyelitis, right ankle and foot; L97.514 Non-pressure chronic ulcer of other part of right foot with necrosis of bone; E11.52 Type 2 diabetes mellitus with diabetic peripheral angiopathy with gangrene; I96 Gangrene, not elsewhere classified
CPT/HCPCS: 11042; 11045; A6207; A6253; G0463

== ENCOUNTER → 2021-07-10 | Outpatient (CLI) | payer MEDICARE | LOC: WOUNDCARE 14:07 | PROVIDERS: ATTEND Family Medicine | DX: I89.0 Lymphedema, not elsewhere classified (principal); N18.30 Chronic kidney disease, stage 3 unspecified; E11.621 Type 2 diabetes mellitus with foot ulcer; E11.40 Type 2 diabetes mellitus with diabetic neuropathy, unspecified; M86.171 Other acute osteomyelitis, right ankle and foot; L97.814 Non-pressure chronic ulcer of other part of right lower leg with necrosis of bone; L92.8 Other granulomatous disorders of the skin and subcutaneous tissue; E11.52 Type 2 diabetes mellitus with diabetic peripheral angiopathy with gangrene; I96 Gangrene, not elsewhere classified | CPT/HCPCS: 17250; 29445; A6212; G0463 ==

== ENCOUNTER → 2021-07-15 | Outpatient (CLI) | payer MEDICARE | LOC: WOUNDCARE 12:57 | PROVIDERS: ATTEND Family Medicine | DX: E11.621 Type 2 diabetes mellitus with foot ulcer (principal); L97.514 Non-pressure chronic ulcer of other part of right foot with necrosis of bone; I89.0 Lymphedema, not elsewhere classified; E11.22 Type 2 diabetes mellitus with diabetic chronic kidney disease; N18.30 Chronic kidney disease, stage 3 unspecified; E11.40 Type 2 diabetes mellitus with diabetic neuropathy, unspecified; E11.69 Type 2 diabetes mellitus with other specified complication; M86.8X7 Other osteomyelitis, ankle and foot; L92.9 Granulomatous disorder of the skin and subcutaneous tissue, unspecified; E11.52 Type 2 diabetes mellitus with diabetic peripheral angiopathy with gangrene; I96 Gangrene, not elsewhere classified | CPT/HCPCS: 11042; A6197; A6234; G0463; L4360 ==

== ENCOUNTER → 2021-07-22 | Outpatient (CLI) | payer MEDICARE | LOC: WOUNDCARE 12:49 | PROVIDERS: ATTEND Family Medicine | DX: E11.621 Type 2 diabetes mellitus with foot ulcer (principal); L97.514 Non-pressure chronic ulcer of other part of right foot with necrosis of bone; E11.22 Type 2 diabetes mellitus with diabetic chronic kidney disease; N18.30 Chronic kidney disease, stage 3 unspecified; E11.40 Type 2 diabetes mellitus with diabetic neuropathy, unspecified; L92.9 Granulomatous disorder of the skin and subcutaneous tissue, unspecified; I89.0 Lymphedema, not elsewhere classified; E11.52 Type 2 diabetes mellitus with diabetic peripheral angiopathy with gangrene; I96 Gangrene, not elsewhere classified | CPT/HCPCS: 11042; G0463 ==

== ENCOUNTER → 2021-07-29 | Outpatient (CLI) | payer MEDICARE | LOC: WOUNDCARE 12:51 | PROVIDERS: ATTEND Family Medicine | DX: I89.0 Lymphedema, not elsewhere classified (principal); L97.514 Non-pressure chronic ulcer of other part of right foot with necrosis of bone; N18.30 Chronic kidney disease, stage 3 unspecified; E11.621 Type 2 diabetes mellitus with foot ulcer; E11.40 Type 2 diabetes mellitus with diabetic neuropathy, unspecified; E11.22 Type 2 diabetes mellitus with diabetic chronic kidney disease; M86.171 Other acute osteomyelitis, right ankle and foot; L92.8 Other granulomatous disorders of the skin and subcutaneous tissue; E11.52 Type 2 diabetes mellitus with diabetic peripheral angiopathy with gangrene; I96 Gangrene, not elsewhere classified | CPT/HCPCS: 11042; A6021; G0463 ==

== ENCOUNTER → 2021-08-05 | Outpatient (CLI) | payer MEDICARE | LOC: WOUNDCARE 12:50 | PROVIDERS: ATTEND Family Medicine | DX: I89.0 Lymphedema, not elsewhere classified (principal); E11.22 Type 2 diabetes mellitus with diabetic chronic kidney disease; N18.30 Chronic kidney disease, stage 3 unspecified; E11.621 Type 2 diabetes mellitus with foot ulcer; E11.40 Type 2 diabetes mellitus with diabetic neuropathy, unspecified; M86.171 Other acute osteomyelitis, right ankle and foot; L97.514 Non-pressure chronic ulcer of other part of right foot with necrosis of bone; L92.8 Other granulomatous disorders of the skin and subcutaneous tissue; E11.52 Type 2 diabetes mellitus with diabetic peripheral angiopathy with gangrene | CPT/HCPCS: 11042; A6021; G0463 ==

== ENCOUNTER → 2021-08-12 | Outpatient (CLI) | payer MEDICARE | LOC: WOUNDCARE 12:58 | PROVIDERS: ATTEND Family Medicine | DX: I89.0 Lymphedema, not elsewhere classified (principal); E11.22 Type 2 diabetes mellitus with diabetic chronic kidney disease; N18.30 Chronic kidney disease, stage 3 unspecified; E11.621 Type 2 diabetes mellitus with foot ulcer; E11.40 Type 2 diabetes mellitus with diabetic neuropathy, unspecified; M86.171 Other acute osteomyelitis, right ankle and foot; E11.52 Type 2 diabetes mellitus with diabetic peripheral angiopathy with gangrene; I96 Gangrene, not elsewhere classified; L92.8 Other granulomatous disorders of the skin and subcutaneous tissue; L97.514 Non-pressure chronic ulcer of other part of right foot with necrosis of bone | CPT/HCPCS: 11044; 87070; 87205; A6266; G0463; 87077 ==

== ENCOUNTER → 2021-08-14 | Outpatient (CLI) | payer MEDICARE ==
[~2021-08-14] MED LIST changes: +GADOTERATE 0.5 MMOL/ML (CLARISCAN) 20 ML VIAL IV ONE
--- NOTE | 2021-08-14 14:12 | Diagnostic Imaging Report ---
EXAMINATION: Right lower extremity MRI with and without contrast, 08/14/2021. TECHNIQUE: Multiplanar, multisequence pre and post contrast-enhanced MR imaging of the right lower extremity was accomplished. INDICATION: History of osteomyelitis. Area of ulceration. COMPARISON: 07/07/2021. FINDINGS: There is persistent T2 hyperintensity throughout the second metatarsal head and along the base of the proximal second phalanx. Surrounding soft tissue edema is noted. There is a small joint effusion at the metatarsophalangeal joint. This may be slightly increased since the previous examination. There is an overlying soft tissue abnormality towards the plantar surface of the second metatarsophalangeal level consistent with known ulceration. A focus of hypointensity in the joint space is noted, nonspecific. Air secondary to infection is a possibility. There is no associated drainable abscess. There does appear to be widening and possible subluxation or dislocation at the second metatarsophalangeal joint level. There is deformity along the third metatarsal heads suspicious for an old fracture with similar findings along the distal aspect of the fifth metatarsal. There is possible dislocation at the third metatarsophalangeal joint. IMPRESSION: 1. Persistent findings of osteomyelitis involving the second metatarsal head and base of the second proximal phalanx with surrounding changes of septic arthritis and cellulitis. No drainable abscess appreciated. 2. Diffuse abnormal signal intensity within the plantar and dorsal soft tissues of the second toe extending medially consistent with edema versus cellulitis. 3. Deformity at the third metatarsophalangeal joint level possibly due to focal dislocation with a likely old fracture of the third metatarsal head. Old fracture involving the fifth metatarsal head also noted. Dictated by: Dictated on workstation # [id number]
== END ==
LOC: RAD 12:30
PROVIDERS: ATTEND Family Medicine
DX: M86.171 Other acute osteomyelitis, right ankle and foot (principal)
CPT/HCPCS: 73720

== ENCOUNTER → 2021-08-19 | Outpatient (CLI) | payer MEDICARE ==
[~2021-08-19] MED LIST changes: -GADOTERATE 0.5 MMOL/ML (CLARISCAN) 20 ML VIAL IV ONE
== END ==
LOC: WOUNDCARE 12:53
PROVIDERS: ATTEND Family Medicine
DX: E11.621 Type 2 diabetes mellitus with foot ulcer (principal); L97.514 Non-pressure chronic ulcer of other part of right foot with necrosis of bone; I89.0 Lymphedema, not elsewhere classified; E11.22 Type 2 diabetes mellitus with diabetic chronic kidney disease; N18.30 Chronic kidney disease, stage 3 unspecified; E11.40 Type 2 diabetes mellitus with diabetic neuropathy, unspecified; M86.471 Chronic osteomyelitis with draining sinus, right ankle and foot; E11.52 Type 2 diabetes mellitus with diabetic peripheral angiopathy with gangrene; I96 Gangrene, not elsewhere classified
CPT/HCPCS: 11042; G0463

== ENCOUNTER → 2021-08-26 | Outpatient (CLI) | payer MEDICARE | LOC: WOUNDCARE 12:58 | PROVIDERS: ATTEND Family Medicine | DX: I89.0 Lymphedema, not elsewhere classified (principal); E11.22 Type 2 diabetes mellitus with diabetic chronic kidney disease; N18.30 Chronic kidney disease, stage 3 unspecified; E11.621 Type 2 diabetes mellitus with foot ulcer; E11.40 Type 2 diabetes mellitus with diabetic neuropathy, unspecified; L97.514 Non-pressure chronic ulcer of other part of right foot with necrosis of bone; M86.471 Chronic osteomyelitis with draining sinus, right ankle and foot; E11.52 Type 2 diabetes mellitus with diabetic peripheral angiopathy with gangrene | CPT/HCPCS: 99212 ==

== ENCOUNTER → 2021-09-23 | Outpatient (CLI) | payer MEDICARE ==
--- NOTE | 2021-09-23 15:22 | Diagnostic Imaging Report ---
INDICATION: Right lower extremity edema, pain. TECHNIQUE: Multiple real-time grayscale images were obtained over the right lower extremity in various projections, bilaterally. Additional duplex Doppler and color Doppler images were also obtained. CORRELATION STUDY: None FINDINGS: Color and grayscale sonographic images demonstrate no intraluminal defect within the visualized portion of the common femoral, superficial femoral and/or popliteal veins to suggest thrombus formation. These vessels demonstrate normal response to compression and augmentation. No soft tissue fluid collection. IMPRESSION: 1. Negative for deep venous thrombosis of the right leg. Dictated by: Dictated on workstation # [id number]
== END ==
LOC: RAD 14:23
PROVIDERS: ATTEND Podiatrist
DX: M79.661 Pain in right lower leg (principal); R60.0 Localized edema

== ENCOUNTER → 2021-09-23 | Outpatient (CLI) | payer MEDICARE | LOC: WOUNDCARE 13:20 | PROVIDERS: ATTEND Family Medicine | DX: E11.621 Type 2 diabetes mellitus with foot ulcer (principal); L97.514 Non-pressure chronic ulcer of other part of right foot with necrosis of bone; I89.0 Lymphedema, not elsewhere classified; E11.22 Type 2 diabetes mellitus with diabetic chronic kidney disease; N18.30 Chronic kidney disease, stage 3 unspecified; E11.40 Type 2 diabetes mellitus with diabetic neuropathy, unspecified; M86.471 Chronic osteomyelitis with draining sinus, right ankle and foot; E11.52 Type 2 diabetes mellitus with diabetic peripheral angiopathy with gangrene; I96 Gangrene, not elsewhere classified | CPT/HCPCS: 11042; A6197; G0463 ==

== ENCOUNTER → 2021-09-30 | Outpatient (CLI) | payer MEDICARE | LOC: WOUNDCARE 13:24 | PROVIDERS: ATTEND Family Medicine | DX: I89.0 Lymphedema, not elsewhere classified (principal); N18.30 Chronic kidney disease, stage 3 unspecified; E11.621 Type 2 diabetes mellitus with foot ulcer; E11.40 Type 2 diabetes mellitus with diabetic neuropathy, unspecified; L97.514 Non-pressure chronic ulcer of other part of right foot with necrosis of bone; M86.471 Chronic osteomyelitis with draining sinus, right ankle and foot; E11.52 Type 2 diabetes mellitus with diabetic peripheral angiopathy with gangrene | CPT/HCPCS: 11042; G0463 ==

== ENCOUNTER → 2021-10-07 | Outpatient (CLI) | payer MEDICARE | LOC: WOUNDCARE 13:26 | PROVIDERS: ATTEND Family Medicine | DX: I89.0 Lymphedema, not elsewhere classified (principal); E11.52 Type 2 diabetes mellitus with diabetic peripheral angiopathy with gangrene; I96 Gangrene, not elsewhere classified; L97.514 Non-pressure chronic ulcer of other part of right foot with necrosis of bone; E11.22 Type 2 diabetes mellitus with diabetic chronic kidney disease; N18.30 Chronic kidney disease, stage 3 unspecified; E11.9 Type 2 diabetes mellitus without complications; E11.621 Type 2 diabetes mellitus with foot ulcer; E11.40 Type 2 diabetes mellitus with diabetic neuropathy, unspecified; M86.471 Chronic osteomyelitis with draining sinus, right ankle and foot | CPT/HCPCS: 11042; A6021; G0463 ==

== ENCOUNTER → 2021-10-14 | Outpatient (CLI) | payer MEDICARE | LOC: WOUNDCARE 13:30 | PROVIDERS: ATTEND Family Medicine | DX: L97.514 Non-pressure chronic ulcer of other part of right foot with necrosis of bone (principal); I89.0 Lymphedema, not elsewhere classified; E11.22 Type 2 diabetes mellitus with diabetic chronic kidney disease; N18.30 Chronic kidney disease, stage 3 unspecified; E11.621 Type 2 diabetes mellitus with foot ulcer; E11.42 Type 2 diabetes mellitus with diabetic polyneuropathy; M86.471 Chronic osteomyelitis with draining sinus, right ankle and foot; E11.52 Type 2 diabetes mellitus with diabetic peripheral angiopathy with gangrene; I96 Gangrene, not elsewhere classified | CPT/HCPCS: 11042; G0463 ==

== ENCOUNTER → 2021-10-21 | Outpatient (CLI) | payer MEDICARE | LOC: WOUNDCARE 13:26 | PROVIDERS: ATTEND Family Medicine | DX: I89.0 Lymphedema, not elsewhere classified (principal); E11.52 Type 2 diabetes mellitus with diabetic peripheral angiopathy with gangrene; I96 Gangrene, not elsewhere classified; E11.22 Type 2 diabetes mellitus with diabetic chronic kidney disease; N18.30 Chronic kidney disease, stage 3 unspecified; E11.9 Type 2 diabetes mellitus without complications; E11.621 Type 2 diabetes mellitus with foot ulcer; E11.40 Type 2 diabetes mellitus with diabetic neuropathy, unspecified; L97.514 Non-pressure chronic ulcer of other part of right foot with necrosis of bone; M86.471 Chronic osteomyelitis with draining sinus, right ankle and foot | CPT/HCPCS: 11042; G0463 ==

== ENCOUNTER → 2021-10-28 | Outpatient (CLI) | payer MEDICARE | LOC: WOUNDCARE 13:23 | PROVIDERS: ATTEND Family Medicine | DX: L97.514 Non-pressure chronic ulcer of other part of right foot with necrosis of bone (principal); I89.0 Lymphedema, not elsewhere classified; E11.22 Type 2 diabetes mellitus with diabetic chronic kidney disease; N18.30 Chronic kidney disease, stage 3 unspecified; E11.621 Type 2 diabetes mellitus with foot ulcer; E11.42 Type 2 diabetes mellitus with diabetic polyneuropathy; M86.471 Chronic osteomyelitis with draining sinus, right ankle and foot; E11.52 Type 2 diabetes mellitus with diabetic peripheral angiopathy with gangrene; I96 Gangrene, not elsewhere classified | CPT/HCPCS: 11042; 15275; G0463 ==

== ENCOUNTER → 2021-11-04 | Outpatient (CLI) | payer MEDICARE | LOC: WOUNDCARE 13:26 | PROVIDERS: ATTEND Family Medicine | DX: I89.0 Lymphedema, not elsewhere classified (principal); E11.22 Type 2 diabetes mellitus with diabetic chronic kidney disease; N18.30 Chronic kidney disease, stage 3 unspecified; E11.621 Type 2 diabetes mellitus with foot ulcer; E11.40 Type 2 diabetes mellitus with diabetic neuropathy, unspecified; L97.514 Non-pressure chronic ulcer of other part of right foot with necrosis of bone; M86.471 Chronic osteomyelitis with draining sinus, right ankle and foot; S90.821A Blister (nonthermal), right foot, initial encounter; E11.52 Type 2 diabetes mellitus with diabetic peripheral angiopathy with gangrene | CPT/HCPCS: 11042; 15275; G0463 ==

== ENCOUNTER → 2021-11-11 | Outpatient (CLI) | payer MEDICARE | LOC: WOUNDCARE 13:28 | PROVIDERS: ATTEND Family Medicine | DX: I89.0 Lymphedema, not elsewhere classified (principal); E11.22 Type 2 diabetes mellitus with diabetic chronic kidney disease; N18.30 Chronic kidney disease, stage 3 unspecified; E11.9 Type 2 diabetes mellitus without complications; E11.621 Type 2 diabetes mellitus with foot ulcer; E11.40 Type 2 diabetes mellitus with diabetic neuropathy, unspecified; L97.514 Non-pressure chronic ulcer of other part of right foot with necrosis of bone; M86.471 Chronic osteomyelitis with draining sinus, right ankle and foot; S90.821A Blister (nonthermal), right foot, initial encounter; E11.52 Type 2 diabetes mellitus with diabetic peripheral angiopathy with gangrene; I96 Gangrene, not elsewhere classified | CPT/HCPCS: 15275; A6197; G0463 ==

== ENCOUNTER → 2021-11-18 | Outpatient (CLI) | payer MEDICARE | LOC: WOUNDCARE 13:19 | PROVIDERS: ATTEND Family Medicine | DX: E11.621 Type 2 diabetes mellitus with foot ulcer (principal); L97.514 Non-pressure chronic ulcer of other part of right foot with necrosis of bone; I89.0 Lymphedema, not elsewhere classified; E11.22 Type 2 diabetes mellitus with diabetic chronic kidney disease; N18.30 Chronic kidney disease, stage 3 unspecified; E11.40 Type 2 diabetes mellitus with diabetic neuropathy, unspecified; M86.472 Chronic osteomyelitis with draining sinus, left ankle and foot; S90.821A Blister (nonthermal), right foot, initial encounter; E11.52 Type 2 diabetes mellitus with diabetic peripheral angiopathy with gangrene; I96 Gangrene, not elsewhere classified | CPT/HCPCS: 11042; 15275; G0463 ==

== ENCOUNTER → 2021-11-26 | Outpatient (CLI) | payer MEDICARE | LOC: WOUNDCARE 13:46 | PROVIDERS: ATTEND Family Medicine | DX: I89.0 Lymphedema, not elsewhere classified (principal); N18.30 Chronic kidney disease, stage 3 unspecified; E11.621 Type 2 diabetes mellitus with foot ulcer; E11.40 Type 2 diabetes mellitus with diabetic neuropathy, unspecified; E11.52 Type 2 diabetes mellitus with diabetic peripheral angiopathy with gangrene; I96 Gangrene, not elsewhere classified; L97.514 Non-pressure chronic ulcer of other part of right foot with necrosis of bone; M86.471 Chronic osteomyelitis with draining sinus, right ankle and foot | CPT/HCPCS: 11042; G0463 ==

== ENCOUNTER → 2021-12-02 | Outpatient (CLI) | payer MEDICARE | LOC: WOUNDCARE 13:26 | PROVIDERS: ATTEND Family Medicine | DX: I89.0 Lymphedema, not elsewhere classified (principal); E11.22 Type 2 diabetes mellitus with diabetic chronic kidney disease; N18.30 Chronic kidney disease, stage 3 unspecified; E11.621 Type 2 diabetes mellitus with foot ulcer; E11.40 Type 2 diabetes mellitus with diabetic neuropathy, unspecified; L97.514 Non-pressure chronic ulcer of other part of right foot with necrosis of bone; M86.471 Chronic osteomyelitis with draining sinus, right ankle and foot; E11.52 Type 2 diabetes mellitus with diabetic peripheral angiopathy with gangrene | CPT/HCPCS: 11042; G0463 ==

== ENCOUNTER → 2021-12-09 | Outpatient (CLI) | payer MEDICARE | LOC: WOUNDCARE 12:55 | PROVIDERS: ATTEND Family Medicine | DX: I89.0 Lymphedema, not elsewhere classified (principal); N18.30 Chronic kidney disease, stage 3 unspecified; E11.22 Type 2 diabetes mellitus with diabetic chronic kidney disease; E11.40 Type 2 diabetes mellitus with diabetic neuropathy, unspecified; E11.52 Type 2 diabetes mellitus with diabetic peripheral angiopathy with gangrene; I96 Gangrene, not elsewhere classified | CPT/HCPCS: A6212; G0463; 99212 ==

== ENCOUNTER → 2022-12-02 | Outpatient (CLI) | payer MEDICARE ==
[~2022-12-02] MED LIST changes: +FAMO-356 PO; -FAMO20TA3 PO; -MISO200T66 PO; +MISO200T83 PO
== END ==
LOC: WOUNDCARE 11:28
PROVIDERS: ATTEND Family Medicine
DX: L97.512 Non-pressure chronic ulcer of other part of right foot with fat layer exposed (principal); M86.671 Other chronic osteomyelitis, right ankle and foot; E11.621 Type 2 diabetes mellitus with foot ulcer; E11.40 Type 2 diabetes mellitus with diabetic neuropathy, unspecified; E66.01 Morbid (severe) obesity due to excess calories; Z68.30 Body mass index [BMI] 30.0-30.9, adult; L03.115 Cellulitis of right lower limb; B95.1 Streptococcus, group B, as the cause of diseases classified elsewhere; B96.5 Pseudomonas (aeruginosa) (mallei) (pseudomallei) as the cause of diseases classified elsewhere; M21.611 Bunion of right foot; E11.52 Type 2 diabetes mellitus with diabetic peripheral angiopathy with gangrene; I96 Gangrene, not elsewhere classified
CPT/HCPCS: 11042; G0463

== ENCOUNTER → 2022-12-02 | Outpatient (CLI) | payer MEDICARE ==
[~2022-12-02] MED LIST changes: +GADOTERATE 0.5 MMOL/ML (CLARISCAN) 20 ML VIAL IV ONE
--- NOTE | 2022-12-02 13:39 | Diagnostic Imaging Report ---
Exam: MRI right foot without and with intravenous contrast. Date: December 02, 2022. Indication: 77-year-old male, right great toe ulcer. Comparison: MRI right foot August 14, 2021. Technique: Multiple pre and postcontrast MRI sequences of the right foot were obtained. Findings: There are motion limitations of the exam. There is prominent abnormal signal within the volar soft tissues at and distal to the level of the first metatarsophalangeal joint. This is near marker denoting area of focal concern. There is no identified T1 marrow signal loss or bone destruction. There is no identified peripherally enhancing focal fluid collection or abscess. There is no acute fracture, bone contusion, or evidence of osteonecrosis. The joint spaces are fairly well preserved. There is no joint effusion. There is diffuse severe fatty muscle atrophy most likely reflecting polyneuropathy. There is no evidence of tenosynovitis. Impression: 1. Motion limited exam. 2. Abnormal signal within the soft tissues at distal to the level of the first metatarsophalangeal joint which could relate to soft tissue ulcer. No identified discrete drainable fluid collection or abscess. 3. No evidence of osteomyelitis. 4. Diffuse fatty muscle atrophy likely reflecting polyneuropathy. Dictated by: Dictated on workstation # [id number]
== END ==
LOC: RAD 10:33
PROVIDERS: ATTEND Family Medicine
DX: E11.621 Type 2 diabetes mellitus with foot ulcer (principal); L97.519 Non-pressure chronic ulcer of other part of right foot with unspecified severity; M62.50 Muscle wasting and atrophy, not elsewhere classified, unspecified site
CPT/HCPCS: 73720

== ENCOUNTER → 2022-12-08 | Outpatient (CLI) | payer MEDICARE ==
[~2022-12-08] MED LIST changes: -GADOTERATE 0.5 MMOL/ML (CLARISCAN) 20 ML VIAL IV ONE
== END ==
LOC: WOUNDCARE 13:25
PROVIDERS: ATTEND Family Medicine
DX: L97.512 Non-pressure chronic ulcer of other part of right foot with fat layer exposed (principal); M86.671 Other chronic osteomyelitis, right ankle and foot; E11.621 Type 2 diabetes mellitus with foot ulcer; M14.671 Charcot's joint, right ankle and foot; E11.40 Type 2 diabetes mellitus with diabetic neuropathy, unspecified; E66.01 Morbid (severe) obesity due to excess calories; B95.1 Streptococcus, group B, as the cause of diseases classified elsewhere; B96.5 Pseudomonas (aeruginosa) (mallei) (pseudomallei) as the cause of diseases classified elsewhere; M21.611 Bunion of right foot
CPT/HCPCS: 11042; G0463

== ENCOUNTER → 2022-12-15 | Outpatient (CLI) | payer MEDICARE | LOC: WOUNDCARE 12:56 | PROVIDERS: ATTEND Family Medicine | DX: I96 Gangrene, not elsewhere classified (principal); E11.621 Type 2 diabetes mellitus with foot ulcer; E11.40 Type 2 diabetes mellitus with diabetic neuropathy, unspecified; L97.512 Non-pressure chronic ulcer of other part of right foot with fat layer exposed; M86.671 Other chronic osteomyelitis, right ankle and foot; M14.671 Charcot's joint, right ankle and foot; B96.5 Pseudomonas (aeruginosa) (mallei) (pseudomallei) as the cause of diseases classified elsewhere; M21.611 Bunion of right foot; E66.01 Morbid (severe) obesity due to excess calories; Z68.30 Body mass index [BMI] 30.0-30.9, adult | CPT/HCPCS: 11042; G0463 ==

== ENCOUNTER → 2022-12-22 | Outpatient (CLI) | payer MEDICARE | LOC: WOUNDCARE 12:56 | PROVIDERS: ATTEND Family Medicine | DX: L97.512 Non-pressure chronic ulcer of other part of right foot with fat layer exposed (principal); M86.671 Other chronic osteomyelitis, right ankle and foot; E11.621 Type 2 diabetes mellitus with foot ulcer; M14.671 Charcot's joint, right ankle and foot; E11.40 Type 2 diabetes mellitus with diabetic neuropathy, unspecified; E66.01 Morbid (severe) obesity due to excess calories; Z68.30 Body mass index [BMI] 30.0-30.9, adult; M21.611 Bunion of right foot; E11.52 Type 2 diabetes mellitus with diabetic peripheral angiopathy with gangrene; I96 Gangrene, not elsewhere classified | CPT/HCPCS: 11042; G0463 ==

== ENCOUNTER → 2022-12-29 | Outpatient (CLI) | payer MEDICARE | LOC: WOUNDCARE 12:51 | PROVIDERS: ATTEND Family Medicine | DX: E11.621 Type 2 diabetes mellitus with foot ulcer (principal); L97.512 Non-pressure chronic ulcer of other part of right foot with fat layer exposed; M86.671 Other chronic osteomyelitis, right ankle and foot; M14.671 Charcot's joint, right ankle and foot; E11.40 Type 2 diabetes mellitus with diabetic neuropathy, unspecified; E66.01 Morbid (severe) obesity due to excess calories; M21.611 Bunion of right foot; Z68.30 Body mass index [BMI] 30.0-30.9, adult; E11.52 Type 2 diabetes mellitus with diabetic peripheral angiopathy with gangrene | CPT/HCPCS: 15275; G0463 ==

== ENCOUNTER → 2023-01-05 | Outpatient (CLI) | payer MEDICARE | LOC: WOUNDCARE 12:49 | PROVIDERS: ATTEND Family Medicine | DX: L97.512 Non-pressure chronic ulcer of other part of right foot with fat layer exposed (principal); E11.621 Type 2 diabetes mellitus with foot ulcer; M14.671 Charcot's joint, right ankle and foot; E11.42 Type 2 diabetes mellitus with diabetic polyneuropathy; E66.01 Morbid (severe) obesity due to excess calories; M21.611 Bunion of right foot; Z68.30 Body mass index [BMI] 30.0-30.9, adult | CPT/HCPCS: 15275; G0463 ==

== ENCOUNTER → 2023-01-12 | Outpatient (CLI) | payer MEDICARE | LOC: WOUNDCARE 13:05 | PROVIDERS: ATTEND Family Medicine | DX: L97.512 Non-pressure chronic ulcer of other part of right foot with fat layer exposed (principal); E11.621 Type 2 diabetes mellitus with foot ulcer; M14.671 Charcot's joint, right ankle and foot; E11.40 Type 2 diabetes mellitus with diabetic neuropathy, unspecified; E66.01 Morbid (severe) obesity due to excess calories; Z68.41 Body mass index [BMI] 40.0-44.9, adult; M21.611 Bunion of right foot | CPT/HCPCS: 15275; G0463 ==

== ENCOUNTER → 2023-01-19 | Outpatient (CLI) | payer MEDICARE | LOC: WOUNDCARE 13:04 | PROVIDERS: ATTEND Family Medicine | DX: E11.621 Type 2 diabetes mellitus with foot ulcer (principal); L97.512 Non-pressure chronic ulcer of other part of right foot with fat layer exposed; M14.671 Charcot's joint, right ankle and foot; E11.40 Type 2 diabetes mellitus with diabetic neuropathy, unspecified; E66.01 Morbid (severe) obesity due to excess calories; M21.611 Bunion of right foot; Z68.30 Body mass index [BMI] 30.0-30.9, adult | CPT/HCPCS: 15275; G0463 ==

== ENCOUNTER → 2023-01-26 | Outpatient (CLI) | payer MEDICARE | LOC: WOUNDCARE 10:55 | PROVIDERS: ATTEND Family Medicine | DX: E11.621 Type 2 diabetes mellitus with foot ulcer (principal); L97.512 Non-pressure chronic ulcer of other part of right foot with fat layer exposed; M14.671 Charcot's joint, right ankle and foot; E11.40 Type 2 diabetes mellitus with diabetic neuropathy, unspecified; E66.01 Morbid (severe) obesity due to excess calories; M21.611 Bunion of right foot; Z68.30 Body mass index [BMI] 30.0-30.9, adult | CPT/HCPCS: 15275; G0463 ==

== ENCOUNTER → 2023-02-02 | Outpatient (CLI) | payer MEDICARE | LOC: WOUNDCARE 12:56 | PROVIDERS: ATTEND Family Medicine | DX: E11.621 Type 2 diabetes mellitus with foot ulcer (principal); E11.40 Type 2 diabetes mellitus with diabetic neuropathy, unspecified; L97.512 Non-pressure chronic ulcer of other part of right foot with fat layer exposed; M14.671 Charcot's joint, right ankle and foot; M21.611 Bunion of right foot; E66.01 Morbid (severe) obesity due to excess calories; Z68.30 Body mass index [BMI] 30.0-30.9, adult | CPT/HCPCS: 11042; G0463 ==